=== PATIENT | female | born 1945 | race African-American/Black ===

== ENCOUNTER 2021-06-26 22:21 | Emergency (ER) | payer MEDICARE, MEDICAID, SELFPAY ==
--- NOTE | ~2021-06-26 | XR_ITS ---
XR knee RT 3V DATE: 06/26/2021 23:16 INDICATION: Injury from fall 2 months ago. Pain at right knee. TECHNIQUE: 3 views including crosstable lateral COMPARISON: None FINDINGS: There is prominent diffuse osteopenia. There is suprapatellar knee joint effusion. There is periarticular spurring of the patella and at the medial compartment. No apparent recent fracture is detected. There is no dislocation. There is chondrocalcinosis. IMPRESSION: Prominent diffuse osteopenia Knee joint effusion Osteoarthritis Chondrocalcinosis Reviewed, dictated and finalized at location A.
--- NOTE | ~2021-06-26 | XR_ITS ---
XR ankle RT min 3V DATE: 06/26/2021 23:16 INDICATION: Fall 5 days ago, right ankle injury TECHNIQUE: 3 views COMPARISON: None FINDINGS: There is severe diffuse osteopenia. No recent fracture or dislocation of the ankle or disru ption of the ankle mortise is detected. Plantar and posterior calcaneal enthesopathy. IMPRESSION: Severe osteopenia No recent fracture or dislocation Plantar and posterior calcaneal enthesopathy Reviewed, dictated and finalized at location A.
[2021-06-26 22:28] VITALS: BP 120/56; PULSE 75; RESP 16; TEMP 36.7; O2SAT 97
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
--- NOTE | 2021-06-26 23:53 | PC.NURSE ---
called [facility] to request transport. ETA [id number]
[2021-06-27] MEDS: HYDROcodone/acetaminophen (*CRX) 7.5-325 MG TABLET 1 TAB PO
[2021-06-27] MEDS: KETOROLAC 30 MG/ML VIAL (*BKC) IM (00:10)
[2021-06-27] MEDS: diazePAM (*CRX) 5 MG TABLET 2.5 MG PO (00:10)
[2021-06-27 00:12] VITALS: BP 113/42; PULSE 61; RESP 15; O2SAT 95
--- NOTE | 2021-06-27 00:30 | PC.NURSE ---
tried multiple times to call report to [facility]. it just rings and then disconnects. called at 0029, 0028 and 0025
--- NOTE | 2021-06-27 01:01 | PC.NURSE ---
called [facility] to request transport. ETA [id number]
--- NOTE | 2021-06-27 01:03 | PC.NURSE ---
called [facility] to request transport. Accepted.
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
[2021-06-27 01:27] VITALS: BP 117/73; PULSE 67; RESP 17; O2SAT 96
--- NOTE | 2021-06-27 01:36 | PC.NURSE ---
tried calling report at [phone] and [phone]
--- NOTE | 2021-06-27 02:02 | PC.NURSE ---
called [facility] for ETA update. ETA [id number]
--- NOTE | 2021-06-27 02:02 | PC.NURSE ---
speedy from [facility] called to check on a different patient. report was given to her.
--- NOTE | 2021-06-27 03:06 | PC.NURSE ---
[facility] here.
== END 2021-06-27 03:08 ==
PROVIDERS: Emergency Provider Emergency Medicine; PCP Internal Medicine
DX: S93.401A Sprain of unspecified ligament of right ankle, initial encounter (principal); S96.911A Strain of unspecified muscle and tendon at ankle and foot level, right foot, initial encounter; M25.561 Pain in right knee; I10 Essential (primary) hypertension; I69.354 Hemiplegia and hemiparesis following cerebral infarction affecting left non-dominant side; V00.818A Other accident with wheelchair (powered), initial encounter
CPT/HCPCS: 73562; 73610; 96372; 99284; A9270; J1885

== ENCOUNTER 2021-10-17 16:37 | Emergency (ER) | payer OTHER, SELFPAY ==
--- NOTE | ~2021-10-17 | CT_ITS ---
EXAMINATION: CT brain wo con DATE: 10/17/2021 21:00 INDICATION: Head injury TECHNIQUE: Computed tomography (CT) of the head was performed without intravenous contrast. The dose- length product was 605.33 mGy-cm. Automated exposure control and iterative reconstruction technique w ere employed. COMPARISON: None FINDINGS: No acute intracranial hemorrhage, infarction, mass or mass effect. No ventriculomegaly or m idline shift. Basilar cisterns are patent. There are scattered mild periventricular and subcortical w joseph matter changes, most likely related to small vessel ischemic disease (microangiopathy). There is intracranial atherosclerosis. Paranasal sinuses and mastoids are pneumatized. No depressed skull fra ctures. IMPRESSION: 1. No acute intracranial abnormality. Reviewed, dictated and finalized at location A. T LINER
--- NOTE | ~2021-10-17 | CT_ITS ---
EXAMINATION: CT cervical spine wo con DATE: 10/17/2021 21:00 INDICATION: Neck pain after fall TECHNIQUE: Computed tomography (CT) of the cervical spine was performed without intravenous contrast. The dose-length product was 294 mGy-cm. Automated exposure control and iterative reconstruction tech nique were employed. COMPARISON: None FINDINGS: Status post fusion at C5-6. There is straightening of cervical lordosis. There is disc narr owing at C7-T1. There is moderate multilevel facet degenerative change. There is mild levoscoliosis. Lung apices are within normal limits. No acute fracture, subluxation or dislocation. Craniovertebral junction within normal limits. Odontoid process within normal limits. There is carotid atherosclerosi s. IMPRESSION: 1. Moderate cervical spondylosis with fusion at C5-6. 2: No acute fracture identified. Reviewed, dictated and finalized at location A. TH AND SAFETY ADVISOR
--- NOTE | ~2021-10-17 | XR_ITS ---
XR knee RT 3V 10/17/2021 21:20 Indication: Right knee pain after fall Procedure: 3 views right knee Comparison: No prior studies for comparison. Findings: Mild-moderate tricompartment all osteoarthritis. There is chondrocalcinosis. Small joint ef fusion. No acute fracture or traumatic malalignment. No significant soft tissue abnormality. Impression: 1: No acute fracture. Reviewed, dictated and finalized at location A. GER MATERIALS MANAGEMENT Impression: 1: No acute fracture.
--- NOTE | ~2021-10-17 | XR_ITS ---
XR wrist RT min 3V 10/17/2021 21:20 Indication: Right wrist pain after fall Procedure: 4 views right wrist Comparison: No prior studies for comparison. Findings: Osteopenia. There is osteoarthritis of the triscaphe, radiocarpal and first CMC joints. Sub tle chondrocalcinosis. No acute fracture is identified. No focal soft tissue abnormality. No radiopaq ue foreign bodies. Impression: 1: No acute fracture. Reviewed, dictated and finalized at location A. HER WHITENER Impression: 1: No acute fracture.
[2021-10-17 16:41] VITALS: BP 132/87; PULSE 78; RESP 18; TEMP 36; O2SAT 100
[2021-10-17 18:05] VITALS: BP 157/84; PULSE 70; RESP 16; O2SAT 97
[2021-10-17 20:22] VITALS: BP 173/76; PULSE 71; RESP 16; O2SAT 97
[2021-10-17 21:19] VITALS: BP 170/76; PULSE 65; RESP 18; O2SAT 97
[2021-10-17] MEDS: HYDROcodone/acetaminophen (*CRX) 5-325 MG TABLET 1 TAB PO (21:39)
--- NOTE | 2021-10-17 21:39 | PC.NURSE ---
updated on patient pain and blood pressure. Ordered [place] [facility]
--- NOTE | 2021-10-17 21:41 | ED.GENADULT ---
HPI - General Adult General Chief complaint: Fall Stated complaint: Fall Last Night Time Seen by Provider: 10/17/21 20:17 History of Present Illness HPI narrative: Patient is a 76-year-old female who presents the emergency department with chief complaint of fall. The patient states she rolled out of her bed reports she has pain in her right wrist right knee neck and head. The patient denies loss of consciousness reports that she is not on blood thinners. The patient reports no focal neurological deficit. The patient states that pain is worse with movement and improved with rest Related Data Home Medications Medication Instructions Recorded Confirmed acetaminophen 650 mg PO ONCE 06/26/21 06/26/21 alum-mag hydroxide-simeth 30 ml PO ONCE 06/26/21 06/26/21 ascorbic acid (vitamin C) 500 mg PO DAILY 06/26/21 06/26/21 bisacodyl [Dulcolax (bisacodyl)] 10 mg RECTAL DAILY PRN 06/26/21 06/26/21 carboxymethylcellulose sodium 1 drp EACH EYE QID 06/26/21 06/26/21 clonazepam 1 mg PO BID 06/26/21 06/26/21 diclofenac sodium 2 g TOPICAL QID 06/26/21 06/26/21 docusate sodium 100 mg PO DAILY 06/26/21 06/26/21 duloxetine 40 mg PO DAILY 06/26/21 06/26/21 ferrous sulfate 324 mg PO EVERY OTHER DAY 06/26/21 06/26/21 fluticasone propionate 1 spray INTRANASAL DAILY 06/26/21 06/26/21 gabapentin 400 mg PO BID 06/26/21 06/26/21 magnesium hydroxide [Milk of 30 ml PO DAILY PRN 06/26/21 06/26/21 Magnesia] melatonin 5 mg PO HS 06/26/21 06/26/21 multivitamin [Daily Multivitamin] 1 tablet PO DAILY 06/26/21 06/26/21 oxycodone-acetaminophen [Percocet] 1 tablet PO Q6H 06/26/21 06/26/21 polyethylene glycol 3350 [Miralax] 17 g PO DAILY 06/26/21 06/26/21 sertraline 100 mg PO DAILY 06/26/21 06/26/21 sucralfate 1 g PO AC 06/26/21 06/26/21 trazodone 25 mg PO HS 06/26/21 06/26/21 Allergies Allergy/AdvReac Type Severity Reaction Status Date / Time aspirin Allergy Unknown Verified 10/17/21 21:22 Influenza Virus Vaccines Allergy Unknown Verified 10/17/21 21:22 Penicillins Allergy Unknown Verified 10/17/21 21:22 pneumococcal vaccine Allergy Unknown Verified 10/17/21 21:22 [From Pneumovax-23] Review of Systems Review of Systems: A 10 system review of systems was completed on the patient and is negative except for what is stated in the HPI. Nursing and ancillary documentation was reviewed. Exam Narrative: GENERAL: Well-appearing, well-nourished, and in no acute distress. HEAD: Normocephalic, atraumatic. EYES: PERRLA and EOMI. ENT: Nares clear, no rhinorrhea or epistaxis. Mucous membranes moist. NECK: Tenderness to palpation in the midline of the cervical spine. CHEST: Clear to auscultation. No respiratory distress. HEART: Regular rate and rhythm. No murmur heard. Normal peripheral pulses. ABDOMEN: Soft, nontender, nondistended, normal active bowel sounds. EXTREMITIES: Normal range of motion. No edema. There is tenderness to palpation in the right knee and right wrist. SKIN: Warm, dry, no rash. NEURO: No focal deficits. Alert and oriented x3. PSYCH: Normal mood and affect. Course Course Emergency Course: CT head shows no acute abnormalities CT cervical spine shows no evidence of fracture Knee x-ray shows no evidence of fracture Wrist x-ray shows no evidence of fracture Vital Signs Vital signs: Vital Signs Temperature 36.0 C L 10/17/21 16:41 Pulse Rate 78 10/17/21 16:41 Respiratory Rate 18 10/17/21 16:41 Blood Pressure 132/87 10/17/21 16:41 Pulse Oximetry 100 10/17/21 16:41 Temperature 36.0 C L 10/17/21 16:41 Pulse Rate 65 10/17/21 21:19 Respiratory Rate 18 10/17/21 21:19 Blood Pressure 170/76 H 10/17/21 21:19 Pulse Oximetry 97 10/17/21 21:19 Medical Decision Making Vital Signs Vital Signs: Vital Signs Temperature 36.0 C L 10/17/21 16:41 Pulse Rate 78 10/17/21 16:41 Respiratory Rate 18 10/17/21 16:41 Blood Pressure 132/87 10/17/21 16:41 Pulse Oximetry 100 10/17/21 16:41 [place]
--- NOTE | 2021-10-17 21:43 | PC.NURSE ---
Initial [place] dropped on floor. Wasted with charge machine operator, Ember, and additional dose pulled and administered to patient.
[2021-10-17 22:36] VITALS: BP 181/93; PULSE 71; RESP 16; TEMP 36.9; O2SAT 98
--- NOTE | 2021-10-17 22:41 | PC.NURSE ---
Called daughter, Lesia, gave update. 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 States patient is wheelchair bound.
--- NOTE | 2021-10-17 22:43 | PC.NURSE ---
Spoke with Evelina nurse at [facility]. Gave update that patient is cleared for discharge, will send copy of scans with patient. States [facility] does not have transportation at this time but confirmed patient is wheelchair bound.
--- NOTE | 2021-10-18 00:56 | PC.NURSE ---
@9900 called [facility] to request transport. ETA 0030 @4970 called [facility] for ETA update. ETA [phone]
--- NOTE | 2021-10-18 01:14 | PC.NURSE ---
called [facility] to request transport. No BLS available tonight. called [facility] to request transport. [facility] accepted trip. EMS enroute.
--- NOTE | 2021-10-18 01:25 | PC.NURSE ---
cancelled [facility]
--- NOTE | 2021-10-18 01:43 | PC.NURSE ---
[facility] here.
== END 2021-10-18 02:01 ==
PROVIDERS: Emergency Provider Emergency Medicine; PCP Internal Medicine
DX: S09.90XA Unspecified injury of head, initial encounter (principal); S16.1XXA Strain of muscle, fascia and tendon at neck level, initial encounter; S60.211A Contusion of right wrist, initial encounter; S83.8X1A Sprain of other specified parts of right knee, initial encounter; W06.XXXA Fall from bed, initial encounter
CPT/HCPCS: 70450; 72125; 73110; 73562; 99284; A9270

== ENCOUNTER 2022-01-28 18:24 | Observation (INO) | payer OTHER, SELFPAY ==
--- NOTE | ~2022-01-28 | XR_ITS ---
EXAMINATION: XR abdomen/kub 1V EXAM DATE: 01/29/2022 10:23 INDICATION: Large stool burden. TECHNIQUE: Frontal projection(s) of the abdomen for interpretation. There is no prior study for amber brooks. 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 Contrast within the bladder. There are bilateral hip replacements. There are left upper quadrant surgical clips. There are bilateral hip replacements with some asymmetric liner wear. IMPRESSION: Moderate amount of colonic stool, probable interval decrease compared to yesterday. Reviewed, dictated and finalized at location B. IMPRESSION: Moderate amount of colonic stool, probable interval decrease aline red to yesterday.
--- NOTE | ~2022-01-28 | XR_ITS ---
EXAMINATION: XR chest 1V portable DATE: 01/28/2022 19:29 INDICATION: Abnormal breathing. Headache. TECHNIQUE: A single frontal view of the chest was obtained. COMPARISON: None. FINDINGS: There is marked elevation of right hemidiaphragm. There is mild atelectasis at right lung b ase. No pleural effusion or pneumothorax. The heart size is normal. There are changes of anterior fus ion procedure in cervical spine. There is a staple line in left upper quadrant of the abdomen. IMPRESSION: 1. Marked elevation of right hemidiaphragm with mild atelectasis at right lung base. Reviewed, dictated and finalized at location A.
--- NOTE | ~2022-01-28 | CT_ITS ---
EXAMINATION: CT abdomen pelvis w con DATE: 01/28/2022 23:25 INDICATION: Low abdominal pain. TECHNIQUE: Computed tomography (CT) of the abdomen and pelvis was performed with 100 mL Omnipaque 350 intravenous contrast. Automated exposure control and iterative reconstruction technique were employe d. The dose-length product was 978.16 mGy-cm. COMPARISON: None. FINDINGS: The visualized portions of the lung bases demonstrate marked elevation of right hemidiaphra gm and mild bilateral atelectasis. No pleural effusion. The heart size is normal. No pericardial effu callum. The main pulmonary artery is enlarged, consistent with pulmonary arterial hypertension. Calcifi ed subcarinal lymph nodes are consistent with old granulomatous disease. There is mild intrahepatic b iliary duct dilatation. The common duct is dilated to 11 mm. There are changes of cholecystectomy. Th e spleen, pancreas, and adrenal glands are normal. There is cortical thinning of the kidneys. There a re cysts in the kidneys measuring up to 3.8 cm on the right. There is a large volume of stool in the distal colon with distention of the rectosigmoid. There are surgical changes of the stomach. The appe ndix is not visualized. There are no pathologically enlarged lymph nodes. There is no free intraperit hall fluid. There is gas in the bladder lumen, likely secondary to recent instrumentation. There are bilateral hip arthroplasties. There is severe lumbar spondylosis and moderate thoracic spondylosis. IMPRESSION: 1. Large volume of stool in the distal colon with distention of the rectosigmoid. 2. Mild intrahepatic and extrahepatic biliary duct dilatation status post cholecystectomy. Reviewed, dictated and finalized at location A. IMPRESSION: 1. Large volume of stool in the distal colon with distention of the rectosigmoi d. 2. Mild intrahepatic and extrahepatic biliary duct dilatation status post henri cystectomy.
[2022-01-28 18:24] VITALS: BP 146/86; PULSE 88; RESP 18; TEMP 36.8; O2SAT 95
[2022-01-28 18:47] LABS: Basophils Percent Auto 0.5 % (0.2-1.2); Eosinophils Absolute Auto 0.3 K/mm3 (0-0.3); Eosinophils Percent Auto 4.4 % (0-4.4); Hematocrit 42.5 % (37.0-47.0); Hemoglobin 13.9 g/dL (12.0-15.0); Immature Granulocyte Absolute 0.01 K/mm3 (0.00-0.031); Immature Granulocyte Percent A 0.2 % (0-0.5); Lymphocytes Absolute Auto 3.62 K/mm3 (0.9-3.2); Lymphocytes Percent Auto 57.3 % (18.3-44.2); Mean Corpuscular HGB Conc 32.7 g/dl (32-36); Mean Corpuscular Hemoglobin 29.9 pg (26-34); Mean Corpuscular Volume 91.4 fl (80-100); Mean Platelet Volume 10.1 fl (7.4-10.4); Monocytes Absolute Auto 0.5 K/mm3 (0.1-0.6); Monocytes Percent Auto 7.8 % (2.6-8.5); Neutrophils Absolute Auto 1.9 K/mm3 (1.3-6.7); Neutrophils Percent Auto 29.8 % (45.5-73.1); Platelet Count Result 188 k/mm3 (150-375); Red Blood Count 4.65 M/mm3 (4.2-5.4); Red Cell Distribution Width 13.7 % (11.5-14.5); White Blood Count 6.3 K/mm3 (4.5-10.0)
--- NOTE | 2022-01-28 19:08 | ECG_ITS ---
Measurements Intervals [place] Rate: 80 P: ND: 220 QRS: -12 QRSD: 140 T: 110 QT: 443 QTc: 511 Interpretive Statements SINUS RHYTHM WITH FIRST-DEGREE AV BLOCK AND PREMATURE ATRIAL CONTRACTIONS. LEFT BUNDLE BRANCH BLOCK [120+ ms QRS DURATION, 80+ ms Q/S IN V1/V2, 85+ ms R IN I/aVL/V5/V6] ABNORMAL ECG NO PREVIOUS ECG AVAILABLE FOR COMPARISON Electronically Signed On 01-29-2022 17:05:10 CDT by Amos Helm M.D.
--- NOTE | 2022-01-28 19:08 | ED.GENADULT ---
HPI - General Adult General Chief complaint: Unspecified <Ann Caal PA-C - Last Filed: 01/29/22 00:45> Stated complaint: abn breathing, vag bleed, tooth ache <Ann Caal PA-C - Last Filed: 01/29/22 00:45> Time Seen by Provider: 01/28/22 18:56 <Ann Caal PA-C - Last Filed: 01/29/22 00:45> Source: patient <TURNER Etienne Last Filed: 01/29/22 00:45> Mode of arrival: EMS <TURNER Etienne Last Filed: 01/29/22 00:45> Limitations: no limitations <Ann Caal PA-C - Last Filed: 01/29/22 00:45> History of Present Illness HPI narrative: This is a 76 year old female that presents to the ER for abdominal pain. Present today. Reports a crampy lower abdominal pain. Reports she thought she was having some vaginal bleeding as well. Patient is bed bound and incontinent. She did not see any bleeding, just thought she felt it. Also reports she felt she was having trouble breathing today. Denies fever, chest pain, vomiting, or dysuria. <Ann Caal PA-C - Last Filed: 01/29/22 00:45> Related Data Home medications: Home Medications Medication Instructions Recorded Confirmed acetaminophen 650 mg PO ONCE 06/26/21 06/26/21 alum-mag hydroxide-simeth 30 ml PO ONCE 06/26/21 06/26/21 ascorbic acid (vitamin C) 500 mg PO DAILY 06/26/21 06/26/21 bisacodyl [Dulcolax (bisacodyl)] 10 mg RECTAL DAILY PRN 06/26/21 06/26/21 carboxymethylcellulose sodium 1 drp EACH EYE QID 06/26/21 06/26/21 clonazepam 1 mg PO BID 06/26/21 06/26/21 diclofenac sodium 2 g TOPICAL QID 06/26/21 06/26/21 docusate sodium 100 mg PO DAILY 06/26/21 06/26/21 duloxetine 40 mg PO DAILY 06/26/21 06/26/21 ferrous sulfate 324 mg PO EVERY OTHER DAY 06/26/21 06/26/21 fluticasone propionate 1 spray INTRANASAL DAILY 06/26/21 06/26/21 gabapentin 400 mg PO BID 06/26/21 06/26/21 magnesium hydroxide [Milk of 30 ml PO DAILY PRN 06/26/21 06/26/21 Magnesia] melatonin 5 mg PO HS 06/26/21 06/26/21 multivitamin [Daily Multivitamin] 1 tablet PO DAILY 06/26/21 06/26/21 oxycodone-acetaminophen [Percocet] 1 tablet PO Q6H 06/26/21 06/26/21 polyethylene glycol 3350 [Miralax] 17 g PO DAILY 06/26/21 06/26/21 sertraline 100 mg PO DAILY 06/26/21 06/26/21 sucralfate 1 g PO AC 06/26/21 06/26/21 trazodone 25 mg PO HS 06/26/21 06/26/21 <Ann Caal PA-C - Last Filed: 01/29/22 00:45> Allergies/adverse reactions: Allergies Allergy/AdvReac Type Severity Reaction Status Date / Time aspirin Allergy Unknown Verified 01/28/22 18:49 Influenza Virus Vaccines Allergy Unknown Verified 01/28/22 18:49 Penicillins Allergy Unknown Verified 01/28/22 18:49 pneumococcal vaccine Allergy Unknown Verified 01/28/22 18:49 [From Pneumovax-23] <Ann Caal PA-C - Last Filed: 01/29/22 00:45> Review of Systems Review of Systems: CONSTITUTIONAL: Denies fever CARDIOVASCULAR: Denies chest pain RESPIRATORY: Reports dyspnea. Denies cough GASTROINTESTINAL: Reports abdominal pain. Denies nausea, vomiting, or diarrhea. GENITOURINARY: Denies dysuria or hematuria. <Ann Caal PA-C - Last Filed: 01/29/22 00:45> All systems reviewed & are unremarkable except as noted in HPI and below <Ann Caal PA-C - Last Filed: 01/29/22 00:45> PMFSH Past Medical History Medical History: Medical History (Updated 01/29/22 @ 00:42 by Ann Caal PA-C) GERD (gastroesophageal reflux disease) History of anxiety History of depression <Ann Caal PA-C - Last Filed: 01/29/22 00:45> Social History Social History: Social History (Updated 01/28/22 @ 19:17 by Ann Caal PA-C) Smoking status: Never smoker <Ann Caal PA-C - Last Filed: 01/29/22 00:45> Exam Narrative: GENERAL: Elderly, well-nourished, and in no acute distress. HEAD: Normocephalic, atraumatic. EYES: EOMI. ENT: Poor dentition. Several decaying teeth. No edema or fluctuance to suggest an abscess. Mucous membranes moist. Oropharynx
[2022-01-28 19:43] VITALS: BP 173/74; PULSE 75; RESP 16; O2SAT 96
[2022-01-28 19:46] LABS: INR 1.1; Prothrombin Time 13.5 Seconds (11.1-14.7)
[2022-01-28 19:47] LABS: Partial Thromboplastin Time 28.1 SECONDS (22.3-36.8)
[2022-01-28 19:48] LABS: Alanine Aminotransferase 10 U/L (4-35); Albumin Level 3.6 g/dL (3.5-5.1); Alkaline Phosphatase 129 U/L (38-126); Anion Gap 2 mmol/L (8-16); Aspartate Amino Transferase 20 U/L (14-36); Bilirubin,Total 0.4 mg/dL (0.2-1.3); Blood Urea Nitrogen 17 mg/dL (7-17); Calcium 8.4 mg/dL (8.4-10.2); Carbon Dioxide 29 mmol/L (22-30); Chloride 105 mmol/L (98-107); Estimated CRCL calculation 89 ml/min; Estimated Glomerular Filt Rate > 60; Glucose 107 mg/dL (65-110); Lipase 103 U/L (23-300); Potassium 3.6 mmol/L (3.4-5.0); Sodium 136 mmol/L (137-145)
[2022-01-28 21:24] VITALS: BP 161/77; PULSE 78; RESP 18; O2SAT 97
[2022-01-28] MEDS: SODIUM CHLORIDE 0.9% IV 500 ML 999 ML IV CONT (21:24)
[2022-01-28 21:46] VITALS: BP 174/79; PULSE 73; RESP 14; O2SAT 97
[2022-01-28 22:46] VITALS: BP 190/82; PULSE 74; RESP 16; O2SAT 96
[2022-01-28 23:01] VITALS: BP 173/87; PULSE 71; RESP 12; O2SAT 97
[2022-01-28 23:10] LABS: Add Urine Microscopic? YES; Appearance Urine Cloudy (Clear); Bacteria Urine Trace /hpf; Bilirubin Urine Negative (Negative); Blood Urine Negative (Negative); Color Urine Yellow (Yellow); Glucose Urine UA Negative (Negative); Ketones Urine Negative (Negative); Leukocyte Esterase Ur 3+ LEU/UL (Negative); Mucus Urine Rare /lpf; Nitrate Urine Negative (Negative); Protein Urine 1+ mg/dL (Negative); RBC Urine 21-50 /hpf (0-2); Specific Grav Ur 1.017 (1.001-1.035); Squamous Epithelial Cell Urine Occasional /hpf (Few); WBC Clumps Urine Present /HPF; WBC Urine >75 /hpf
[2022-01-29] VITALS (14 sets, daily range): BP systolic 113–175; BP diastolic 76–93; PULSE 71–90; RESP 13–20; TEMP 35.7–36.8; O2SAT 97–99; BMI 23.9
--- NOTE | 2022-01-29 00:21 | PM.IMHP ---
H&P: HPI History of Present Illness Date/Time: 01/29/22 00:21 Chief Complaint: Abdominal pain. Narrative: This is a 76-year-old female with past medical history significant for spinal stenosis, chronic pain, chronic opiate use, patient is [facility] resident. Was brought to the emergency room for evaluation of abdominal pain. Patient unable to give much history. Preliminary workup was significant for CT of abdomen and pelvis with large stool burden. Patient denies any fevers, rigors ,chills, nausea ,vomiting no cough, no shortness of breath, no sputum production, she is bed-bound. Patient has been admitted for further, evaluation management and treatment. Review of Systems Review of Systems: Patient is brought to emergency room due to abdominal pain. Constitutional: Constitutional: Denies chills, Denies fatigue, Denies fever(s), Denies night sweats and Denies weakness Eyes: Eyes: Denies change in vision ENT: Denies dysphagia, Denies vertigo, Denies dizziness, Denies nasal congestion, Denies nasal discharge, Denies nasal obstruction and Denies odynophagia Cardiovascular: Cardiovascular: Denies pedal edema, Denies claudication, Denies leg ulcers, Denies leg edema, Denies radiating jaw, neck or arm pain, Denies palpitations, Denies dyspnea on exertion and Denies orthopnea Gastrointestinal: Gastrointestinal: Reports abdominal pain, Denies dyspepsia, Denies heartburn and Denies nausea Genitourinary: Genitourinary: Denies dysuria Musculoskeletal: Musculoskeletal: Denies arthralgias and Denies joint swelling Integumentary/Breasts: Skin/Breast: Denies rash Neurologic: Denies vertigo, Denies dizziness, Denies focal weakness and Denies Sensory deficit (Neuro) Comments: Bed-bound Psychiatric: Psychiatric: Reports no additional psychiatric complaints and Reports as per HPI Endocrine: Endocrine: Denies cold intolerance, Denies heat intolerance, Denies polyphagia, Denies polydipsia and Denies palpitations Hematologic/Lymphatic: Hematologic/Lymphatic: Reports no additional hematologic/lymphatic complaints and Reports as per HPI Allergic/Immunologic: Allergic/Immunologic: Reports no additional allergic/immunologic complaints and Reports as per HPI [facility] Past Medical History Medical History (Updated 01/29/22 @ 04:37 by Estefani Boss MD) GERD (gastroesophageal reflux disease) History of anxiety History of depression Social History Social History (Updated 01/28/22 @ 19:17 by Ann Caal PA-C) Smoking status: Never smoker Meds Home Medications and Allergies Home Medications Medication Instructions Recorded Confirmed Type acetaminophen 650 mg PO TID PRN 06/26/21 01/29/22 History alum-mag hydroxide-simeth 30 ml PO ONCE PRN 06/26/21 01/29/22 History ascorbic acid (vitamin C) 500 mg PO DAILY 06/26/21 01/29/22 History bisacodyl [Dulcolax (bisacodyl)] 10 mg RECTAL DAILY PRN 06/26/21 01/29/22 History carboxymethylcellulose sodium 1 drp EACH EYE QID 06/26/21 01/29/22 History clonazepam 1 mg PO BID 06/26/21 01/29/22 History diclofenac sodium 2 g TOPICAL QID 06/26/21 01/29/22 History docusate sodium 100 mg PO DAILY 06/26/21 01/29/22 History duloxetine 40 mg PO DAILY 06/26/21 01/29/22 History ferrous sulfate 325 mg PO EVERY OTHER DAY 06/26/21 01/29/22 History fluticasone propionate 1 spray INTRANASAL DAILY 06/26/21 01/29/22 History gabapentin 400 mg PO BID 06/26/21 01/29/22 History magnesium hydroxide [Milk of 30 ml PO DAILY PRN 06/26/21 01/29/22 History Magnesia] melatonin 5 mg PO HS 06/26/21 01/29/22 History multivitamin [Daily Multivitamin] 1 tablet PO DAILY 06/26/21 01/29/22 History oxycodone-acetaminophen [Percocet] 1 tablet PO Q6H 06/26/21 01/29/22 History polyethylene glycol 3350 [Miralax] 17 g PO DAILY 06/26/21 01/29/22 History sertraline 100 mg PO DAILY 06/26/21 01/29/22 History sucralfate 1 g PO AC 06/26/21 01/29/22 History trazodone 25 mg PO HS 06/26/21 01/29/22 History Antifungal (miconazole) 1 applic TOPICAL B
[2022-01-29 01:46] LABS: SARS-CoV-2 RNA PCR Negative
--- NOTE | 2022-01-29 02:48 | PC.NURSE ---
Updated RN at [facility] at this time per phone.
--- NOTE | 2022-01-29 04:30 | ADMGEN ---
This patient, Cora Escalante, was admitted to Medical Room 249-01. Patient/family oriented to hospital policies and general routines including ID bracelet, bed and alarms, visiting hours, pain management, procedures, bathroom and other care routines, personal items, smoking policy, room service/diet, and visiting hours. Information on how to activate the Rapid Response Team has been discussed. Patient/Family are encouraged to report perceived risks to care and to ask questions if they do not understand what they are told or what they should do.
[2022-01-29] MEDS: SUCRALFATE 1 GM TABLET PO ×3 (06:23→16:44)
[2022-01-29] MEDS: ACETAMINOPHEN 325 MG TABLET 650 MG PO ×2 (06:25→16:44)
[2022-01-29] MEDS: ARTIFICIAL TEARS OPHTH SOLN 15 ML BOTTLE 1 DROP EACH EYE ×4 (08:43→20:46)
[2022-01-29] MEDS: DOCUSATE SODIUM 100 MG CAPSULE PO (08:43)
[2022-01-29] MEDS: polyethylene glycoL 3350 17 GM POWD.PACK PO (08:43)
[2022-01-29] MEDS: FLUTICASONE PROPIONATE 0.05% NA SPR 16 GM BTL (*BKC) 1 SPRAY NASAL (08:43)
[2022-01-29] MEDS: TOLNAFTATE 1% POWDER 45 GM BTL 1 APPLIC TOPICAL ×2 (08:43→20:46)
[2022-01-29] MEDS: MULTIVITAMINS THERAPEUTIC TAB (*BKC) 1 TABLET PO (08:43)
[2022-01-29] MEDS: GABAPENTIN 400 MG CAPSULE PO ×2 (08:43→20:46)
[2022-01-29] MEDS: SERTRALINE HCL 50 MG TABLET 100 MG PO (08:43)
[2022-01-29] MEDS: ASCORBIC ACID 500 MG TABLET PO (08:43)
[2022-01-29] MEDS: FERROUS SULFATE 324 MG TABLET PO (08:44)
[2022-01-29] MEDS: DULoxetine HCL 20 MG CAPSULE.DR 40 MG PO (08:44)
[2022-01-29] MEDS: clonazePAM (*CRX) 0.5 MG TABLET 1 MG PO ×2 (08:44→16:44)
[2022-01-29] MEDS: CHLORHEXIDINE GLUCONATE 0.12% ORAL RINSE 473 ML BTL (*BKC) 15 ML SWISH/SPIT ×4 (08:45→20:47)
[2022-01-29] MEDS: DICLOFENAC SODIUM 1% 100 GM GEL (*BKC) 1 APPLIC TOPICAL ×4 (08:45→20:46)
--- NOTE | 2022-01-29 14:45 | PM.IMPN ---
Progress Note: A&P Assessment and Plan (1) Acute UTI: Code(s): N39.0 - Urinary tract infection, site not specified Status: Acute Assessment and Plan: UA was abnormal on presentation with 3+ leuk esterase and >75 WBC Continue IV levofloxacin Urine cultures pending Monitor final culture results and tailor antibiotics accordingly (2) Constipation: Qualifiers: Constipation type: unspecified constipation type Qualified Code(s): K59.00 - Constipation, unspecified Code(s): K59.00 - Constipation, unspecified Status: Acute Assessment and Plan: CT on presentation showed large volume of stool in distal colon with distention of the rectosigmoid She received soapsuds enema in the ED and subsequently had 3 bowel movements Repeat KUB today shows moderate amount of colonic stool with interval decreased compared to 1 day prior Continue MiraLax b.i.d. and Colace b.i.d. Proceed with Dulcolax suppository today Encourage ambulation and limit narcotics (3) GERD (gastroesophageal reflux disease): Code(s): K21.9 - Gastro-esophageal reflux disease without esophagitis Status: Inactive Assessment and Plan: No acute issues Continue sucralfate Subjective Date/time seen: 01/29/22 14:45 Interval history: Date of service: 01/29/2022 Cora Escalante is a 76-year-old a history anxiety, depression, anger follow-up for UTI and constipation. She is feeling a lot better today. She had 3 bowel movements yesterday following enema and notes significant improvement. She denies abdominal pain, cramping, or bloating. Denies nausea or vomiting. She has been tolerating clear liquids and would like to advance her diet. She does endorse dysuria which she states has been ongoing for quite a while. she notes no improvement as of yet. She denies hematuria, urgency, or frequency. She states that she is bed-bound and wears depends. she denies dizziness, lightheadedness, weakness, fever, or chills, shortness breath, cough, chest pain. She is in good spirits. Review of Systems Review of Systems: All systems reviewed & are unremarkable except as noted in HPI and below Exam Narrative: General: Thin, chronically ill-appearing 76 year-old female, sitting up in bed, comfortable, NARD Neuro: awake, alert and oriented, answers all questions appropriately, speech clear, no focal neuro deficits noted HEENMT: normocephalic, atraumatic, EOMI, sclerae anicteric, poor dentition Respiratory: clear to auscultation bilaterally, nonlabored breathing Cardio: regular rate, regular rhythm with S1-S2 Abdomen: nondistended, normoactive bowel sounds, soft, nontender to palpation : no CVA tenderness Extremities: trace edema, legs are propped up on a pillow, noerythema or tenderness to palpation, DP pulses 2+ bilaterally Skin: no rashes or lesions, warm and dry Psych: appropriate mood and affect, judgment and insight intact Objective Data Vital Signs Vital Signs: Vital Signs - 24 hr 01/28/22 18:24 01/28/22 19:43 01/28/22 21:24 Temperature 98.3 F Pulse Rate 88 75 78 Respiratory Rate 18 16 18 Blood Pressure 146/86 H 173/74 H 161/77 H Pulse Oximetry 95 96 97 01/28/22 21:46 01/28/22 22:46 01/28/22 23:01 Temperature Pulse Rate 73 74 71 Respiratory Rate 14 16 12 Blood Pressure 174/79 H 190/82 H 173/87 H Pulse Oximetry 97 96 97 01/29/22 00:06 01/29/22 01:01 01/29/22 01:46 Temperature Pulse Rate 73 71 73 Respiratory Rate 13 16 16 Blood Pressure 175/79 H 172/80 H 162/78 H Pulse Oximetry 97 97 97 01/29/22 02:15 01/29/22 02:45 01/29/22 04:00 Temperature Pulse Rate 75 85 76 Respiratory Rate 18 19 Blood Pressure 168/88 H 167/93 H Pulse Oximetry 97 98 01/29/22 04:07 01/29/22 06:00 01/29/22 08:00 Temperature 97.1 F L Pulse Rate 85 77 87 Respiratory Rate 19 20 Blood Pressure 141/76 H Pulse Oximetry 98 99 01/29/22 12:00 Temperature Pulse Rate
[2022-01-29] MEDS: BISACODYL 10 MG SUPPOSITORY RECTAL (15:11)
[2022-01-29] MEDS: traZODone HCL 25 MG TABLET PO (20:46)
[2022-01-29] MEDS: MELATONIN 5 MG TABLET PO (20:46)
[2022-01-30] VITALS (9 sets, daily range): BP systolic 128–147; BP diastolic 67–84; PULSE 70–88; RESP 14–18; TEMP 35.7–36.8; O2SAT 97–99
[2022-01-30 05:25] LABS: Hematocrit 44.3 % (37.0-47.0); Hemoglobin 14.8 g/dL (12.0-15.0); Mean Corpuscular HGB Conc 33.4 g/dl (32-36); Mean Corpuscular Hemoglobin 29.8 pg (26-34); Mean Corpuscular Volume 89.3 fl (80-100); Platelet Count Result 173 k/mm3 (150-375); Red Blood Count 4.96 M/mm3 (4.2-5.4); Red Cell Distribution Width 13.4 % (11.5-14.5); White Blood Count 5.9 K/mm3 (4.5-10.0)
[2022-01-30] MEDS: SUCRALFATE 1 GM TABLET PO ×3 (05:30→16:17)
[2022-01-30 05:33] LABS: Anion Gap 9 mmol/L (8-16); Blood Urea Nitrogen 11 mg/dL (7-17); Carbon Dioxide 27 mmol/L (22-30); Chloride 103 mmol/L (98-107); Estimated CRCL calculation 89 ml/min; Estimated Glomerular Filt Rate > 60; Glucose 107 mg/dL (65-110); Potassium 3.1 mmol/L (3.4-5.0); Sodium 139 mmol/L (137-145)
[2022-01-30] MEDS: ASCORBIC ACID 500 MG TABLET PO (08:43)
[2022-01-30] MEDS: DULoxetine HCL 20 MG CAPSULE.DR 40 MG PO (08:43)
[2022-01-30] MEDS: polyethylene glycoL 3350 17 GM POWD.PACK PO (08:43)
[2022-01-30] MEDS: MULTIVITAMINS THERAPEUTIC TAB (*BKC) 1 TABLET PO (08:43)
[2022-01-30] MEDS: SERTRALINE HCL 50 MG TABLET 100 MG PO (08:43)
[2022-01-30] MEDS: DOCUSATE SODIUM 100 MG CAPSULE PO (08:43)
[2022-01-30] MEDS: GABAPENTIN 400 MG CAPSULE PO ×2 (08:43→21:09)
[2022-01-30] MEDS: ARTIFICIAL TEARS OPHTH SOLN 15 ML BOTTLE 1 DROP EACH EYE ×4 (08:44→21:09)
[2022-01-30] MEDS: TOLNAFTATE 1% POWDER 45 GM BTL 1 APPLIC TOPICAL ×2 (08:44→21:09)
[2022-01-30] MEDS: FLUTICASONE PROPIONATE 0.05% NA SPR 16 GM BTL (*BKC) 1 SPRAY NASAL (08:44)
[2022-01-30] MEDS: clonazePAM (*CRX) 0.5 MG TABLET 1 MG PO ×2 (08:53→16:17)
[2022-01-30] MEDS: ACETAMINOPHEN 325 MG TABLET 650 MG PO (08:53)
[2022-01-30] MEDS: POTASSIUM CHLORIDE 20 MEQ TABLET 40 MEQ PO (09:35)
--- NOTE | 2022-01-30 10:13 | PM.IMPN ---
Progress Note: A&P Assessment and Plan (1) Acute UTI: Code(s): N39.0 - Urinary tract infection, site not specified Status: Acute Assessment and Plan: UA was abnormal on presentation with 3+ leuk esterase and >75 WBC Continue IV levofloxacin Urine cultures pending Monitor final culture results and tailor antibiotics accordingly (2) Constipation: Qualifiers: Constipation type: unspecified constipation type Qualified Code(s): K59.00 - Constipation, unspecified Code(s): K59.00 - Constipation, unspecified Status: Acute Assessment and Plan: CT on presentation showed large volume of stool in distal colon with distention of the rectosigmoid She received soapsuds enema in the ED and subsequently had 3 bowel movements Repeat KUB today shows moderate amount of colonic stool with interval decreased compared to 1 day prior Continue MiraLax b.i.d. and Colace b.i.d. Proceed with Dulcolax suppository today Encourage ambulation and limit narcotics (3) GERD (gastroesophageal reflux disease): Code(s): K21.9 - Gastro-esophageal reflux disease without esophagitis Status: Inactive Assessment and Plan: No acute issues Continue sucralfate (4) Hypokalemia: Code(s): E87.6 - Hypokalemia Status: Acute Assessment and Plan: - 3.1 today. - Give 40 mEq po - Recheck in AM. Time Spent With Patient Time with patient: 15 - 25 minutes Subjective Date/time seen: 01/30/22 0840 This pt. was examined at the bedside in interval assessment She is currently being treated for a UTI on Levaquin and we are still awaiting culture results. We will continue IV abx in the interim. In the meantime, the pt. has a low Potassium level today of 3.1. She will receive 40 mEq po. No new complaints today and specifically no CP, Dyspnea, N/V/D. Review of Systems Review of Systems: All systems reviewed & are unremarkable except as noted in HPI and below Exam Narrative: General: Thin, chronically ill-appearing 76 year-old female, sitting up in bed, comfortable, NARD Neuro: awake, alert and oriented, answers all questions appropriately, speech clear, no focal neuro deficits noted HEENMT: normocephalic, atraumatic, EOMI, sclerae anicteric, poor dentition Respiratory: clear to auscultation bilaterally, nonlabored breathing Cardio: regular rate, regular rhythm with S1-S2 Abdomen: nondistended, normoactive bowel sounds, soft, nontender to palpation : no CVA tenderness Extremities: trace edema, legs are propped up on a pillow, noerythema or tenderness to palpation, DP pulses 2+ bilaterally Skin: no rashes or lesions, warm and dry Psych: appropriate mood and affect, judgment and insight intact Objective Data Vital Signs Vital Signs: Vital Signs - 24 hr 01/29/22 12:00 01/29/22 14:45 01/29/22 16:00 Temperature 98.2 F Pulse Rate 83 73 90 Respiratory Rate 18 Blood Pressure 152/89 H Pulse Oximetry 98 01/29/22 19:45 01/29/22 20:00 01/30/22 00:00 Temperature 96.3 F L Pulse Rate 83 79 84 Respiratory Rate 18 Blood Pressure 113/90 Pulse Oximetry 99 01/30/22 04:00 01/30/22 04:25 01/30/22 08:00 Temperature 96.2 F L Pulse Rate 85 88 85 Respiratory Rate 18 Blood Pressure 128/84 Pulse Oximetry 98 Intake/Output Intake/Output: Intake & Output 01/27/22 01/28/22 01/29/22 01/30/22 23:59 23:59 23:59 23:59 Intake Total 600 1564 140 Balance 600 1564 140 Meds/Results Medications: Active Medications Generic Name Dose Route Start Last Admin Trade Name Freq PRN Reason Stop Dose Admin Acetaminophen 650 mg 01/29/22 04:16 01/30/22 08:53 Acetaminophen 325 Mg Tablet PO 650 mg TID PRN Administration Pain Rated 1-3 Al Hydrox/Mg Hydrox/Simethicone 30 ml 01/29/22 04:16 Mag Hydrox/Al Hydrox/Simeth 30 Ml Udc PO DAILY PRN Dyspepsia Artificial Tears 1 drop 01/29/22 09:00 01/30/22 08:44 Artific
[2022-01-30] MEDS: CHLORHEXIDINE GLUCONATE 0.12% ORAL RINSE 473 ML BTL (*BKC) 15 ML SWISH/SPIT ×4 (13:24→21:13)
[2022-01-30] MEDS: DICLOFENAC SODIUM 1% 100 GM GEL (*BKC) 1 APPLIC TOPICAL ×4 (13:25→21:13)
[2022-01-30] MEDS: oxyCODONE/ACETAMINOPHEN (*CRX) 5-325 MG TABLET 1 TABLET PO (15:11)
[2022-01-30] MEDS: MELATONIN 5 MG TABLET PO (21:09)
[2022-01-30] MEDS: traZODone HCL 25 MG TABLET PO (21:10)
[2022-01-31] VITALS: PULSE 73
[2022-01-31] MEDS: ACETAMINOPHEN 325 MG TABLET 650 MG PO (02:19)
[2022-01-31 04:00] VITALS: PULSE 80
[2022-01-31 05:04] LABS: Basophils Percent Auto 0.6 % (0.2-1.2); Eosinophils Absolute Auto 0.3 K/mm3 (0-0.3); Eosinophils Percent Auto 5.6 % (0-4.4); Hematocrit 44.2 % (37.0-47.0); Hemoglobin 14.1 g/dL (12.0-15.0); Immature Granulocyte Absolute 0.02 K/mm3 (0.00-0.031); Immature Granulocyte Percent A 0.4 % (0-0.5); Lymphocytes Absolute Auto 3.32 K/mm3 (0.9-3.2); Lymphocytes Percent Auto 62.1 % (18.3-44.2); Mean Corpuscular HGB Conc 31.9 g/dl (32-36); Mean Corpuscular Hemoglobin 29.7 pg (26-34); Mean Corpuscular Volume 93.1 fl (80-100); Mean Platelet Volume 9.7 fl (7.4-10.4); Monocytes Absolute Auto 0.4 K/mm3 (0.1-0.6); Monocytes Percent Auto 7.3 % (2.6-8.5); Neutrophils Absolute Auto 1.3 K/mm3 (1.3-6.7); Platelet Count Result 164 k/mm3 (150-375); Red Blood Count 4.75 M/mm3 (4.2-5.4); Red Cell Distribution Width 13.6 % (11.5-14.5); White Blood Count 5.4 K/mm3 (4.5-10.0)
[2022-01-31] MEDS: SUCRALFATE 1 GM TABLET PO ×2 (05:15→11:21)
[2022-01-31 05:20] LABS: Alanine Aminotransferase 8 U/L (4-35); Albumin Level 3.7 g/dL (3.5-5.1); Alkaline Phosphatase 105 U/L (38-126); Anion Gap 8 mmol/L (8-16); Aspartate Amino Transferase 21 U/L (14-36); Bilirubin,Total 0.5 mg/dL (0.2-1.3); Blood Urea Nitrogen 13 mg/dL (7-17); Calcium 8.8 mg/dL (8.4-10.2); Carbon Dioxide 26 mmol/L (22-30); Chloride 104 mmol/L (98-107); Estimated CRCL calculation 89 ml/min; Estimated Glomerular Filt Rate > 60; Glucose 112 mg/dL (65-110); Magnesium 1.8 mg/dL (1.6-2.3); Potassium 3.8 mmol/L (3.4-5.0); Sodium 138 mmol/L (137-145)
[2022-01-31 06:00] VITALS: BP 147/62; PULSE 73; RESP 16; TEMP 36.4; O2SAT 98
[2022-01-31] MEDS: DOCUSATE SODIUM 100 MG CAPSULE PO (08:08)
[2022-01-31] MEDS: polyethylene glycoL 3350 17 GM POWD.PACK PO (08:08)
[2022-01-31] MEDS: ARTIFICIAL TEARS OPHTH SOLN 15 ML BOTTLE 1 DROP EACH EYE (08:08)
[2022-01-31] MEDS: clonazePAM (*CRX) 0.5 MG TABLET 1 MG PO (08:08)
[2022-01-31] MEDS: MULTIVITAMINS THERAPEUTIC TAB (*BKC) 1 TABLET PO (08:09)
[2022-01-31] MEDS: CHLORHEXIDINE GLUCONATE 0.12% ORAL RINSE 473 ML BTL (*BKC) 15 ML SWISH/SPIT (08:09)
[2022-01-31] MEDS: SERTRALINE HCL 50 MG TABLET 100 MG PO (08:09)
[2022-01-31] MEDS: FLUTICASONE PROPIONATE 0.05% NA SPR 16 GM BTL (*BKC) 1 SPRAY NASAL (08:09)
[2022-01-31] MEDS: FERROUS SULFATE 324 MG TABLET PO (08:09)
[2022-01-31] MEDS: DULoxetine HCL 20 MG CAPSULE.DR 40 MG PO (08:09)
[2022-01-31] MEDS: GABAPENTIN 400 MG CAPSULE PO (08:09)
[2022-01-31] MEDS: ASCORBIC ACID 500 MG TABLET PO (08:09)
[2022-01-31] MEDS: DICLOFENAC SODIUM 1% 100 GM GEL (*BKC) 1 APPLIC TOPICAL (08:10)
[2022-01-31] MEDS: TOLNAFTATE 1% POWDER 45 GM BTL 1 APPLIC TOPICAL (08:10)
[2022-01-31 08:15] VITALS: PULSE 89
--- NOTE | 2022-01-31 10:31 | PM.DS ---
DS: Admitting Diagnosis Discharge Date 01/31/2022 Admitting Diagnosis 1) Acute UTI 2) Constipation 3) Atrial Fibrillation 4) GERD DS: Discharge Diagnosis Discharge Diagnosis (1) Acute UTI: Code(s): N39.0 - Urinary tract infection, site not specified Status: Acute Assessment and Plan: UA was abnormal on presentation with 3+ leuk esterase and >75 WBC Continue IV levofloxacin Urine cultures pending Monitor final culture results and tailor antibiotics accordingly Urine culture grew out E.coli with sensitivity to Bactrim DS. She will be discharged to [facility] today with prescription for Bactrim DS po BID for 7 days. (2) Constipation: Qualifiers: Constipation type: unspecified constipation type Qualified Code(s): K59.00 - Constipation, unspecified Code(s): K59.00 - Constipation, unspecified Status: Resolved Assessment and Plan: CT on presentation showed large volume of stool in distal colon with distention of the rectosigmoid She received soapsuds enema in the ED and subsequently had 3 bowel movements Repeat KUB today shows moderate amount of colonic stool with interval decreased compared to 1 day prior Continue MiraLax b.i.d. and Colace b.i.d. Proceed with Dulcolax suppository today Encourage ambulation and limit narcotics Pt. with 2 BM's overnight. No longer a current problem. (3) GERD (gastroesophageal reflux disease): Code(s): K21.9 - Gastro-esophageal reflux disease without esophagitis Status: Inactive Assessment and Plan: No acute issues Continue sucralfate (4) Hypokalemia: Code(s): E87.6 - Hypokalemia Status: Resolved Assessment and Plan: - 3.8 today. - RESOLVED DS: Summary Hospital Course Reason for hospitalization: Abdominal Pain Hospital Course: This is a 76-year-old female with past medical history significant for spinal stenosis, chronic pain, chronic opiate use, patient is longterm resident, who was brought to the ER for evaluation of having complaints of acute abdominal pain.She is confused and unable to give much history. The pt had a CT exam performed in ER that showed a large stool burden and as such, her Urine showed a positive UTI. Her constipation was able to be resolved with use of cathartics and her Urine grew out E.coli that is sensitive to Augmentin. She has been receiving Levaquin here, but is stable to be discharged back to the longterm on Bactrim DS at this time. No new complaints including CP, Dyspnea, N/V/D, and her constipation has resolved. Her VSS, and her labs are unremarkable today. Status at Discharge Cognitive/behavioral status at discharge: At her baseline. Functional status at discharge: bed bound Overall status at discharge: patient is back to baseline Time Spent with Patient Time attestation: Total time spent providing and/or coordinating discharge services: 40 minutes Time spent: Greater than 30 minutes Exam Const: General: comfortable and no acute distress HENMT: Mouth: Yes moist mucous membranes Eyes: Sclera: sclerae normal Neck: Neck: supple and no JVD Lymphatic: lymphadenopathy not noted Resp: Effort & Inspection: normal respiratory effort Auscultation: clear to auscultation bilaterally Cardio: Rate: regular rate Rhythm: regular rhythm GI: Inspection: non-distended GI Palp: Yes Soft to palpation, No Firmness to palpation present (GI), No Tenderness to palpation present (GI) and No Guarding due to palpation present (GI) Auscultation: normal bowel sounds : External Female Exam: normal external appearance Skin: General skin exam: normal color and no rashes or lesions noted Neuro: General: gait normal Motor exam (neuro): 5/5 motor strength present throughout and Normal motor muscle tone present throughout Sensory Exam: normal sensation Extrem: General: normal to inspection Psych: Appearance: grossly normal Mental Status: mental status grossly abno
== END 2022-01-31 12:53 ==
LOC: ANHED 01-29 00:45 → ANH2MED 01-29 02:27
PROVIDERS: Physician Assistant; Admitting Provider Internal Medicine; Emergency Provider Emergency Medicine; PCP Internal Medicine; Visit Provider Nurse Practitioner Adult Health
DX: N39.0 Urinary tract infection, site not specified (principal); I48.91 Unspecified atrial fibrillation; K59.00 Constipation, unspecified; E87.6 Hypokalemia; K21.9 Gastro-esophageal reflux disease without esophagitis; M48.00 Spinal stenosis, site unspecified; G89.29 Other chronic pain; F32.A Depression, unspecified; F41.9 Anxiety disorder, unspecified; B96.20 Unspecified Escherichia coli [E. coli] as the cause of diseases classified elsewhere; Z79.891 Long term (current) use of opiate analgesic; Z20.822 Contact with and (suspected) exposure to COVID-19
CPT/HCPCS: 36415; 51701; 71045; 74018; 74177; 80048; 80053; 81001; 83690; 83735; 85025; 85027; 85610; 85730; 87077; 87086; 87186; 93005; 96361; 96365; 96366; 96367; 99285; A4248; A9270; C9803; G0378; J0131; J1956; J7040; Q9967; U0003; U0005

== ENCOUNTER 2022-07-19 11:43 | Inpatient (IN) | payer OTHER, SELFPAY ==
[2022-07-19] VITALS (13 sets, daily range): BP systolic 122–151; BP diastolic 69–99; PULSE 90–110; RESP 15–18; TEMP 36.4–37.2; O2SAT 96–100; BMI 21.1
--- NOTE | ~2022-07-19 | XR_ITS ---
XR chest 2V 07/19/2022 12:24 Indication: Right-sided chest pain and shortness of breath Procedure: 2 view chest Comparison: 01/28/2022 Findings: No focal air space disease, pulmonary edema, pleural effusion or suspected pneumothorax. 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 Stable cardiomed iastinal silhouette. There are bilateral degenerative changes of the shoulders. There are surgical ch anges in the epigastric region. Impression: 1: No acute cardiopulmonary disease. Reviewed, dictated and finalized at location A. Impression: 1: No acute cardiopulmonary disease.
--- NOTE | ~2022-07-19 | XR_ITS ---
EXAMINATION: XR ankle RT 2V INDICATION: Right ankle pain and swelling TECHNIQUE: Two views of the right ankle are obtained. COMPARISON: 06/26/2021 FINDINGS: The bones are osteopenic which limits the sensitivity for fracture however none is seen. Th ere is lateral soft tissue swelling of ankle. No fracture is identified. Bone alignment is normal. Po sterior and plantar calcaneal enthesophytes are noted. 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 IMPRESSION: 1. Ankle soft tissue swelling without evidence of acute osseous abnormality, sensitivity limited by o steopenia. Reviewed, dictated and finalized at location A. IMPRESSION: 1. Ankle soft tissue swelling without evidence of acute osseous abnormality, se nsitivity limited by osteopenia.
--- NOTE | ~2022-07-19 | CT_ITS ---
EXAMINATION: CTA chest PE abdomen pel DATE: 07/19/2022 13:12 INDICATION: Chest pain. Shortness of breath. TECHNIQUE: Computed tomography angiography (CTA) of the chest was performed with 100 mL Omnipaque-350 intravenous contrast timed to evaluate the pulmonary arteries. Coronal maximum intensity projection 3D-reconstructions were created by the technologist. Computed tomography (CT) of the abdomen and pelv is was performed with intravenous contrast. Automated exposure control and iterative reconstruction t echnique were employed. The dose-length product was 1312.83 mGy-cm. COMPARISON: CT abdomen and pelvis 01/28/2022 FINDINGS: CTA chest: The lungs demonstrate mild atelectasis. There is chronic marked elevation of right hemidia phragm. No pleural effusion. The heart size is normal. No pericardial effusion. The central pulmonary arteries are enlarged, consistent with pulmonary arterial hypertension. There is no pulmonary embolu s. There are changes of anterior fusion procedure in cervical spine. There is moderate thoracic spond ylosis. CT abdomen and pelvis: There is moderate intrahepatic biliary duct dilatation. The gallbladder is abs ent. The common duct measures 13 mm in diameter. The spleen, pancreas, and adrenal glands are normal. There is cortical thinning of the kidneys. There are cysts in the kidneys measuring up to 3.4 cm on the right. There is gas in the bladder lumen, likely from recent instrumentation. There are surgical changes of the bowel. There are no dilated loops of bowel. There is a small sliding hiatal hernia. Th ere are surgical changes of the stomach. There are no pathologically enlarged lymph nodes. There is n o free intraperitoneal fluid. There are bilateral hip arthroplasties. There is severe lumbar spondylo sis. IMPRESSION: 1. No pulmonary embolus. 2. Intrahepatic and extrahepatic biliary duct dilatation status post cholecystectomy, stable from 12/31. 3. Chronic marked elevation of right hemidiaphragm. Reviewed, dictated and finalized at location A. IMPRESSION: 1. No pulmonary embolus. 2. Intrahepatic and extrahepatic biliary duct dilatation status post cholecyste ctomy, stable from 01/28/2022. 3. Chronic marked elevation of right hemidiaphragm.
--- NOTE | ~2022-07-19 | XR_ITS ---
EXAMINATION: XR barium swallow modified DATE: 07/20/2022 11:49 INDICATION: Dysphagia. TECHNIQUE: The patient was given barium-containing material of multiple consistencies to swallow by t he speech pathologist while I performed fluoroscopy. Fluoroscopy exposure time was 0.7 minutes. The n umber of fluoroscopy images saved to the PACS was 1. Dose-area product was 0.601 Gy-cm^2. FINDINGS: The patient is edentulous. There was reduced pharyngeal squeeze. IMPRESSION: 1. No laryngeal penetration or aspiration. 2. Please refer to the speech therapy report for recommendations. Reviewed, dictated and finalized at location A.
--- NOTE | ~2022-07-19 | US_ITS ---
EXAMINATION:US venous doppler LE BI INDICATION:Leg edema TECHNIQUE: Multiple grayscale, color flow and Doppler images of the right and left lower extremity de ep venous systems were obtained and reviewed. COMPARISON:No prior studies for comparison. FINDINGS: The common femoral, superficial femoral and popliteal veins demonstrate normal respiratory variation, augmentation and compressibility. Color flow is also seen within the posterior tibial, pe roneal, greater saphenous and profunda veins. IMPRESSION: 1: No lower extremity deep venous thrombosis. Reviewed, dictated and finalized at location A.
--- NOTE | 2022-07-19 11:49 | ECG_ITS ---
Measurements Intervals [place] Rate: 93 P: 12 GA: 202 QRS: -37 QRSD: 140 T: 127 QT: 400 QTc: 500 Interpretive Statements SINUS RHYTHM LEFT AXIS DEVIATION BORDERLINE AV CONDUCTION DELAY LEFT BUNDLE BRANCH BLOCK BASELINE ARTIFACT- V1 ABNORMAL ECG NO PREVIOUS ECG AVAILABLE FOR COMPARISON Electronically Signed On 07-19-2022 13:56:52 CDT by Oscar Boland D.O.
[2022-07-19 12:06] LABS: Basophils Percent Auto 0.3 % (0.2-1.2); Eosinophils Absolute Auto 0.1 K/mm3 (0-0.3); Eosinophils Percent Auto 1.3 % (0-4.4); Hematocrit 44.8 % (37.0-47.0); Hemoglobin 14.9 g/dL (12.0-15.0); Immature Granulocyte Absolute 0.02 K/mm3 (0.00-0.031); Immature Granulocyte Percent A 0.2 % (0-0.5); Lymphocytes Absolute Auto 2.85 K/mm3 (0.9-3.2); Lymphocytes Percent Auto 33.1 % (18.3-44.2); Mean Corpuscular HGB Conc 33.3 g/dl (32-36); Mean Corpuscular Hemoglobin 29.9 pg (26-34); Mean Platelet Volume 9.4 fl (7.4-10.4); Monocytes Absolute Auto 0.6 K/mm3 (0.1-0.6); Monocytes Percent Auto 7.4 % (2.6-8.5); Neutrophils Percent Auto 57.7 % (45.5-73.1); Platelet Count Result 259 k/mm3 (150-375); Red Blood Count 4.98 M/mm3 (4.2-5.4); Red Cell Distribution Width 13.3 % (11.5-14.5); White Blood Count 8.6 K/mm3 (4.5-10.0)
[2022-07-19 12:18] LABS: INR 1.2; Prothrombin Time 14.5 Seconds (11.1-14.7)
[2022-07-19 12:19] LABS: Partial Thromboplastin Time 25.7 SECONDS (22.3-36.8)
[2022-07-19 12:20] LABS: Alanine Aminotransferase 15 U/L (6-35); Albumin Level 4.2 g/dL (3.5-5.1); Alkaline Phosphatase 133 U/L (38-126); Anion Gap 13 mmol/L (8-16); Aspartate Amino Transferase 19 U/L (14-36); Bilirubin,Total 0.9 mg/dL (0.2-1.3); Blood Urea Nitrogen 28 mg/dL (7-17); Calcium 9.2 mg/dL (8.4-10.2); Carbon Dioxide 26 mmol/L (22-30); Chloride 95 mmol/L (98-107); Estimated Glomerular Filt Rate > 60; Glucose 159 mg/dL (65-110); Lipase 198 U/L (23-300); Potassium 3.6 mmol/L (3.4-5.0); Sodium 134 mmol/L (137-145)
--- NOTE | 2022-07-19 12:24 | ED.CHESTPAIN ---
HPI - Chest Pain General Chief Complaint: Chest Pain Stated Complaint: CP Time Seen by Provider: 07/19/22 12:00 Source: RN notes reviewed History of Present Illness HPI narrative: Patient presents emergency department for chest pain. Patient states pain is over the right side of the chest and radiates around into the back is described as aching in nature. States nothing makes the pain better or worse. She notes mild associated shortness of breath as well as nausea and vomiting. The patient denies any fevers or chills abdominal pain diarrhea or any other symptom Related Data Home Medications Medication Instructions Recorded Confirmed clonazepam 1 mg tablet mg 07/19/22 07/19/22 gabapentin 400 mg capsule mg 07/19/22 metolazone 2.5 mg tablet mg 07/19/22 omeprazole 20 mg capsule,delayed mg 07/19/22 release potassium chloride 20 mEq meq PO 07/19/22 tablet,extended release(part/cryst) tramadol 50 mg tablet mg 07/19/22 trazodone 50 mg tablet mg 07/19/22 Allergies Allergy/AdvReac Type Severity Reaction Status Date / Time aspirin Allergy Other Verified 07/19/22 11:49 Review of Systems Review of Systems: Gen.: Denies fevers or chills ENT: Denies congestion Respiratory: Reports mild shortness of breath CV: See HPI GI: Denies abdominal pain or diarrhea. Reports nausea and vomiting Musculoskeletal: Denies back pain or muscle pain Neuro: Denies numbness, tingling, weakness or focal weakness Skin: Denies rash Except as documented, all other systems reviewed and negative Exam Narrative: APPEARANCE: No acute distress, nontoxic, resting in bed EYES: EOMI HEENT: Normocephalic, atraumatic, OMM RESPIRATORY: No respiratory distress Clear to auscultation bilaterally with no rhonchi wheezing or rales. CARDIOVASCULAR: Regular rate and rhythm without murmurs rubs or gallops. ABDOMINAL: Soft, nontender, nondistended, no rebound or guarding MUSCULOSKELETAl: Moves all extremities. No clubbing, cyanosis or edema. NEURO: Awake and alert. Following commands, speech normal, no focal deficits SKIN:: Warm, dry. No rashes lesions or abrasions PSYCHIATRIC: Normal affect/mood, Course Course Emergency Course: Discussed Dr. Crain agrees with admission Discussed with JAZ Og[place] for Dr. [place] agrees with consult Discussed with patient and family results of workup and diagnosis. Discussed need for admission. Patient and family understand and agree to current treatment plan Vital Signs Vital signs: Vital Signs Temperature 98.9 F 07/19/22 11:44 Pulse Rate 95 07/19/22 11:44 Respiratory Rate 15 07/19/22 11:44 Blood Pressure 141/74 H 07/19/22 11:44 Pulse Oximetry 99 07/19/22 11:44 Oxygen Delivery Room Air 07/19/22 11:44 Temperature 98.9 F 07/19/22 11:44 Pulse Rate 95 07/19/22 11:44 Respiratory Rate 15 07/19/22 11:44 Blood Pressure 141/74 H 07/19/22 11:44 Pulse Oximetry 99 07/19/22 11:44 Oxygen Delivery Room Air 07/19/22 11:44 MDM - Chest Pain Lab Data Result diagrams: 07/19/22 11:59 07/19/22 12:00 Labs: Lab Results 07/19/22 07/19/22 07/19/22 Range/Units 11:59 12:00 12:00 WBC 8.6 (4.5-10.0) K/mm3 RBC 4.98 (4.2-5.4) M/mm3 Hgb 14.9 (12.0-15.0) g/dL Hct 44.8 (37.0-47.0) % MCV 90.0 (80-100) fl MCH 29.9 (26-34) pg MCHC 33.3 (32-36) g/dl RDW 13.3 (11.5-14.5) % Plt Count 259 (150-375) k/mm3 MPV 9.4 (7.4-10.4) fl Immature Gran % (Auto) 0.2 (0-0.5) % Neut % (Auto) 57.7 (45.5-73.1) % Lymph % (Auto) 33.1 (18.3-44.2) % Ellis % (Auto) 7.4 (2.6-8.5) % Eos % (Auto) 1.3 (0-4.4) % Baso % (Auto) 0.3 (0.2-1.2) % Lymph # (Auto) 2.85 (0.9-3.2) K/mm3 Ellis # (Auto) 0.6 (0.1-0.6) K/mm3 Eos # (Auto) 0.1 (0-0.3) K/mm3 Baso # (Auto) 0.0 (0.0-0.1) K/mm3 Abs Immat Gran (auto) 0.02 (0.00-0.031) K/mm3 Absolute Neuts (auto) 5.0 (1.3-6.7) K/mm3 Absolute Nucle
[2022-07-19 12:31] LABS: Troponin I < 0.012 ng/mL (0.000-0.034)
[2022-07-19 13:52] LABS: SARS-CoV-2 RNA PCR Negative
[2022-07-19 16:01] LABS: Troponin I < 0.012 ng/mL (0.000-0.034)
--- NOTE | 2022-07-19 16:10 | PM.IMHP ---
H&P: HPI History of Present Illness Date/Time: 07/19/22 16:10 Chief Complaint: Chest pain. Narrative: This is a 77-year-old female with arthritis, anxiety, and GERD who presented to the emergency department for evaluation of chest pain. She came in complaining of an aching discomfort in the right side of her chest which radiated into the back associated with mild shortness of breath as well as nausea and vomiting last night. Her troponins have thus far been negative and her EKG showed a left bundle branch block but no other acute findings. It is unclear whether not this is new old. At the time my evaluation she is not having any chest pain in fact a majority of her discomfort is in the epigastric region. She coughs occasionally throughout the interview and she has scattered upper airway rhonchi which improved with cough. It is noted that she is on a mechanical soft diet and she does indicate that sometime she is scared to drink liquids as she is afraid that she is going to choke. Last night she thinks that her nausea and vomiting was due to the fact that she had cheese that she felt was stuck in her esophagus. CT of the abdomen and pelvis done in the emergency department was negative for PE and showed stable and chronic intrahepatic and extrahepatic biliary duct dilatation status post cholecystectomy in December 2021. Review of Systems Review of Systems: Twelve systems were reviewed. No syncope or near syncope. No fever, chills, or sweats. She complains of dysphagia as detailed above. It sounds as though she may be aspirating and that is why she is on a mechanical soft diet. She does not recall any recent episodes of overt aspiration. No sinus congestion or sore throat. She frequently gets heartburn. No hematemesis or melena. Except as documented, all other systems were reviewed and are negative. [facility] Past Medical History Medical History (Updated 07/20/22 @ 01:24 by Nancy Melissa PA-C) Anxiety Arthritis Gastroesophageal reflux disease Surgical History Surgical History (Updated 07/20/22 @ 01:19 by Nancy Melissa PA-C) History of appendectomy History of bilateral hip replacements History of cholecystectomy History of hysterectomy History of repair of right rotator cuff Family History Family History (Updated 07/20/22 @ 01:19 by Nancy Melissa PA-C) Other Diabetes mellitus Hypertension Social History Social History (Updated 07/20/22 @ 01:20 by Nancy Melissa PA-C) Social History: Surrogate medical decision maker: Lesia Escalante, daughter. Code status: Full code. Smoking status: Never smoker Alcohol intake: never Substance use: never Additional living arrangements comments: Resident at [facility]. Spiritual care concerns: No Meds Home Medications and Allergies Home Medications Medication Instructions Recorded Confirmed Type acetaminophen 650 mg tablet 650 mg PO Q8H PRN Mild Pain (Scale 07/19/22 07/19/22 History Score 1-4) aluminum-mag hydroxide-simethicone 30 ml PO DAILY PRN Heartburn 07/19/22 07/19/22 History 200 mg-200 mg-25 mg/5 mL oral susp bisacodyl 10 mg rectal suppository 10 mg RECTAL DAILY PRN Constipation 07/19/22 07/19/22 History (Dulcolax (bisacodyl)) clonazepam 1 mg tablet 1 mg PO Q12H 07/19/22 07/19/22 History diclofenac sodium 1 % topical gel 2 g topical QID PRN Pain 07/19/22 07/19/22 History docusate sodium 100 mg capsule 100 mg PO DAILY 07/19/22 07/19/22 History (Colace) duloxetine 30 mg capsule,delayed 30 mg PO DAILY 07/19/22 07/19/22 History release ferrous sulfate 325 mg (65 mg 325 mg PO BIDAC 07/19/22 07/19/22 History iron) tablet fluticasone propionate 50 1 spray intranasal DAILY 07/19/22 07/19/22 History mcg/actuation nasal spray,suspension gabapentin 400 mg capsule 400 mg PO Q12H 07/19/22 07/19/22 History ibuprofen 200 mg tablet 200 mg PO Q8H PRN Pain 07/19/22 07/19/22 History magnesium hydroxide 400 mg/5 mL 30 ml PO DAILY PRN Con
--- NOTE | 2022-07-19 16:10 | ECG_ITS ---
Measurements Intervals Bee Rate: 90 P: -2 [place]: 208 QRS: -37 QRSD: 138 T: 123 QT: 406 QTc: 499 Interpretive Statements SINUS RHYTHM LEFT AXIS DEVIATION BORDERLINE AV CONDUCTION DELAY LEFT BUNDLE BRANCH BLOCK BASELINE ARTIFACT- I, II, AVR, V2 ABNORMAL ECG COMPARED TO ECG 07/19/2022 11:54:19 NO SIGNIFICANT CHANGES Electronically Signed On 07-19-2022 16:57:56 CDT by Oscar Boland D.O.
--- NOTE | 2022-07-19 16:24 | ADMGEN ---
This patient, Cora Escalante, was admitted to IMU Room 202-01. Patient/family oriented to hospital policies and general routines including ID bracelet, bed and alarms, visiting hours, pain management, procedures, bathroom and other care routines, personal items, smoking policy, room service/diet, and visiting hours. Information on how to activate the Rapid Response Team has been discussed. Patient/Family are encouraged to report perceived risks to care and to ask questions if they do not understand what they are told or what they should do.
[2022-07-19] MEDS: ACETAMINOPHEN 325 MG TABLET 650 MG PO (16:56)
[2022-07-19 19:18] LABS: Hemoglobin A1C 5.2 % (<5.7)
[2022-07-19] MEDS: MELATONIN 5 MG TABLET PO (20:40)
[2022-07-19] MEDS: POTASSIUM CHLORIDE 20 MEQ TABLET.ER BY MOUTH (20:40)
[2022-07-19] MEDS: GABAPENTIN 400 MG CAPSULE PO (20:40)
[2022-07-19] MEDS: clonazePAM (*CRX) 0.5 MG TABLET 1 MG PO (20:40)
[2022-07-19] MEDS: traZODone HCL 50 MG TABLET PO (20:40)
[2022-07-19] MEDS: SUCRALFATE SUSP 100 MG/ML 10 ML UDC 1000 MG PO (20:40)
[2022-07-19] MEDS: metOLazone 2.5 MG TABLET BY MOUTH (20:42)
[2022-07-20] VITALS (17 sets, daily range): BP systolic 99–119; BP diastolic 55–94; PULSE 90–105; RESP 14–20; TEMP 36.4–37.1; O2SAT 97–99
[2022-07-20 04:57] LABS: Basophils Percent Auto 0.3 % (0.2-1.2); Eosinophils Absolute Auto 0.2 K/mm3 (0-0.3); Eosinophils Percent Auto 2.5 % (0-4.4); Hematocrit 42.6 % (37.0-47.0); Hemoglobin 13.9 g/dL (12.0-15.0); Immature Granulocyte Absolute 0.03 K/mm3 (0.00-0.031); Immature Granulocyte Percent A 0.3 % (0-0.5); Lymphocytes Absolute Auto 4.72 K/mm3 (0.9-3.2); Lymphocytes Percent Auto 54.1 % (18.3-44.2); Mean Corpuscular HGB Conc 32.6 g/dl (32-36); Mean Corpuscular Hemoglobin 29.6 pg (26-34); Mean Corpuscular Volume 90.6 fl (80-100); Mean Platelet Volume 9.5 fl (7.4-10.4); Monocytes Absolute Auto 0.8 K/mm3 (0.1-0.6); Monocytes Percent Auto 8.7 % (2.6-8.5); Neutrophils Percent Auto 34.1 % (45.5-73.1); Platelet Count Result 240 k/mm3 (150-375); Red Cell Distribution Width 13.3 % (11.5-14.5); White Blood Count 8.7 K/mm3 (4.5-10.0)
[2022-07-20 05:12] LABS: Alanine Aminotransferase 12 U/L (6-35); Albumin Level 3.8 g/dL (3.5-5.1); Alkaline Phosphatase 115 U/L (38-126); Anion Gap 14 mmol/L (8-16); Aspartate Amino Transferase 17 U/L (14-36); Bilirubin,Total 0.8 mg/dL (0.2-1.3); Blood Urea Nitrogen 34 mg/dL (7-17); Carbon Dioxide 23 mmol/L (22-30); Chloride 95 mmol/L (98-107); Estimated CRCL calculation 45 ml/min; Estimated Glomerular Filt Rate > 60; Glucose 107 mg/dL (65-110); Lipase 230 U/L (23-300); Magnesium 2.2 mg/dL (1.6-2.3); Potassium 3.8 mmol/L (3.4-5.0); Sodium 132 mmol/L (137-145)
[2022-07-20 05:21] LABS: Troponin I < 0.012 ng/mL (0.000-0.034)
[2022-07-20] MEDS: FERROUS SULFATE 324 MG TABLET PO ×2 (05:27→17:31)
[2022-07-20] MEDS: SUCRALFATE SUSP 100 MG/ML 10 ML UDC 1000 MG PO ×3 (05:27→20:38)
[2022-07-20] MEDS: clonazePAM (*CRX) 0.5 MG TABLET 1 MG PO ×2 (09:30→20:38)
[2022-07-20] MEDS: traMADol HCL (*CRX) 50 MG TABLET PO ×2 (09:30→20:39)
[2022-07-20] MEDS: DOCUSATE SODIUM 100 MG CAPSULE PO (09:31)
[2022-07-20] MEDS: ENOXAPARIN 40 MG/0.4 ML SYRINGE SUB-Q (09:31)
[2022-07-20] MEDS: DULoxetine HCL 30 MG CAPSULE.DR PO (09:31)
[2022-07-20] MEDS: MULTIVITAMINS THERAPEUTIC TAB (*BKC) 1 TABLET PO (09:32)
[2022-07-20] MEDS: GABAPENTIN 400 MG CAPSULE PO ×2 (09:32→20:38)
[2022-07-20] MEDS: PANTOPRAZOLE 40 MG TABLET PO (09:32)
[2022-07-20] MEDS: FLUTICASONE PROPIONATE 0.05% NA SPR 16 GM BTL (*BKC) 1 SPRAY NASAL (09:32)
[2022-07-20] MEDS: polyethylene glycoL 3350 17 GM POWD.PACK PO (09:33)
[2022-07-20] MEDS: SERTRALINE HCL 50 MG TABLET 100 MG PO (09:33)
--- NOTE | 2022-07-20 12:05 | PCSTNOTE ---
Modified barium swallow study completed. Other than mild residue with uncontrolled thin liquid bolus, patient's swallowing abilities are WFL. Due to lack of dentition, patient has been receiving mechanical soft diet texture. Recommend Minced and Moist diet (level 5) with thin liquids. Thank you for the referral of this patient.
--- NOTE | 2022-07-20 14:15 | PM.CNCAR ---
Assessment and Plan Assessment and plan (1) Chest pain: Code(s): R07.9 - Chest pain, unspecified Status: Acute (2) Anxiety: Code(s): F41.9 - Anxiety disorder, unspecified Status: Acute (3) Gastroesophageal reflux disease: Code(s): K21.9 - Gastro-esophageal reflux disease without esophagitis Status: Acute (4) Dysphagia: Code(s): R13.10 - Dysphagia, unspecified Status: Acute Plan Atypical chest pain in nature, occurs when trying to swallow food, and patient also has reproducible chest pain upon palpation of her chest. Troponins are negative, and ECG shows LBBB, which is likely chronic as no signs/symptoms consistent with ACS. Chest pain is likely non-cardiac, no indication to pursue stress testing as inpatient. Would check lipid panel for further risk stratification. Given her lower extremity edema that patient reports pain with, would obtain venous Duplex to rule out DVT. History of Present Illness History of Present Illness Consult date/time: 07/20/22 14:15 Requesting physician: Tigre Pearce DO Consult reason: chest pain Reason For Visit: Chest Pain Narrative: Patient is a 77-year-old female with a history of arthritis, anxiety, and GERD who presented for evaluation of chest pain. Patient resides in a halfway. Patient states that about 3 days ago, she would start choking up her food whenever she tried to eat. Would have chest tightness whenever she would start choking. Patient does not walk, therefore, unable to assess exertional symptoms. Patient denies any past cardiac history. No prior history of chest pain. Patient reports that because she does not walk, her legs are chronically swollen and hurt. Patient noted to have an ASA allergy. Troponins negative x 3. ECG showed LBBB, no prior ECG available for comparision. Review of Systems Review of Systems: All systems reviewed & are unremarkable except as noted in HPI and below (HPI) [facility] Past Medical History Medical History Anxiety Arthritis Gastroesophageal reflux disease Surgical History Surgical History History of appendectomy History of bilateral hip replacements History of cholecystectomy History of hysterectomy History of repair of right rotator cuff Family History Family History Other Diabetes mellitus Hypertension Social History Social History Social History: Surrogate medical decision maker: Lesia Escalante, daughter. Code status: Full code. Smoking status: Never smoker Alcohol intake: never Substance use: never Additional living arrangements comments: Resident at [facility]. Spiritual care concerns: No Meds Home Medications and Allergies Home Medications Medication Instructions Recorded Confirmed Type acetaminophen 650 mg tablet 650 mg PO Q8H PRN Mild Pain (Scale 07/19/22 07/19/22 History Score 1-4) aluminum-mag hydroxide-simethicone 30 ml PO DAILY PRN Heartburn 07/19/22 07/19/22 History 200 mg-200 mg-25 mg/5 mL oral susp bisacodyl 10 mg rectal suppository 10 mg RECTAL DAILY PRN Constipation 07/19/22 07/19/22 History (Dulcolax (bisacodyl)) clonazepam 1 mg tablet 1 mg PO Q12H 07/19/22 07/19/22 History diclofenac sodium 1 % topical gel 2 g topical QID PRN Pain 07/19/22 07/19/22 History docusate sodium 100 mg capsule 100 mg PO DAILY 07/19/22 07/19/22 History (Colace) duloxetine 30 mg capsule,delayed 30 mg PO DAILY 07/19/22 07/19/22 History release ferrous sulfate 325 mg (65 mg 325 mg PO BIDAC 07/19/22 07/19/22 History iron) tablet fluticasone propionate 50 1 spray intranasal DAILY 07/19/22 07/19/22 History mcg/actuation nasal spray,suspension gabapentin 400 mg capsule 400 mg PO Q12H 07/19/22 07/19/22 History ibuprofen 200 mg tablet 200 mg PO
--- NOTE | 2022-07-20 18:47 | PM.IMPN ---
Progress Note: A&P Assessment and Plan (1) Chest pain: Code(s): R07.9 - Chest pain, unspecified Status: Acute Assessment and Plan: The patient presented to the emergency department today for evaluation of right-sided chest pain which radiated through to the back, so she was shortness of breath, nausea, and vomiting. She has thus far had 2 negative troponins. EKG shows a left bundle branch block which I presume is old as her history does not suggest an acute coronary syndrome. More over she has tenderness to palpation over the anterior chest and in the epigastric region and it seems less likely that her pain is related to a cardiac etiology. 07/20/2022 interval history: patient presented with complaint of chest pain, patient 3 sets of cardiac enzymes and EKG showed left bundle branch block seen by cardiology suspect most likely chronic as patient does not persistent complaint of chest and the chest pain is reproducible upon palpation most likely patient musculoskeletal pain, and does have lower extremity edema suspicious for DVT venous Dopplers are negative, continue to monitor will have a PT OT evaluate and further recommendation to follow. (2) Dysphagia: Code(s): R13.10 - Dysphagia, unspecified Status: Acute Assessment and Plan: She describes dysphagia with both solids and liquids, more so with liquids and in fact she is afraid to even tried to drink water at times. She will be NPO for now on a modified barium swallow has been ordered for a.m. (3) Gastroesophageal reflux disease: Code(s): K21.9 - Gastro-esophageal reflux disease without esophagitis Status: Acute Assessment and Plan: She reports increasing GERD symptoms recently and d hematemesis and melena. She has apparently been taking ibuprofen at the half-way which will be held. Continue PPI and add Carafate. Consider GI consult. (4) Anxiety: Code(s): F41.9 - Anxiety disorder, unspecified Status: Acute Assessment and Plan: Continue clonazepam. Subjective Date/time seen: 07/20/22 18:47 HPI-Narrative: This is a 77-year-old female with arthritis, anxiety, and GERD who presented to the emergency department for evaluation of chest pain. She came in complaining of an aching discomfort in the right side of her chest which radiated into the back associated with mild shortness of breath as well as nausea and vomiting last night. Her troponins have thus far been negative and her EKG showed a left bundle branch block but no other acute findings. It is unclear whether not this is new old. At the time my evaluation she is not having any chest pain in fact a majority of her discomfort is in the epigastric region. She coughs occasionally throughout the interview and she has scattered upper airway rhonchi which improved with cough. It is noted that she is on a mechanical soft diet and she does indicate that sometime she is scared to drink liquids as she is afraid that she is going to choke. Last night she thinks that her nausea and vomiting was due to the fact that she had cheese that she felt was stuck in her esophagus. CT of the abdomen and pelvis done in the emergency department was negative for PE and showed stable and chronic intrahepatic and extrahepatic biliary duct dilatation status post cholecystectomy in December 2021. 07/20/2022 interval history: patient presented with complaint of chest pain, patient 3 sets of cardiac enzymes and EKG showed left bundle branch block seen by cardiology suspect most likely chronic as patient does not persistent complaint of chest and the chest pain is reproducible upon palpation most likely patient musculoskeletal pain, and does have lower extremity edema suspicious for DVT venous Dopplers are negative, continue to monitor will have a PT OT evaluate and further recommendation to follow. Review of Systems Review of Systems: All systems reviewed & are unremarkable except as
[2022-07-20] MEDS: MELATONIN 5 MG TABLET PO (20:38)
[2022-07-20] MEDS: traZODone HCL 50 MG TABLET PO (20:40)
[2022-07-21] VITALS: PULSE 90
[2022-07-21 04:00] VITALS: BP 122/61; PULSE 83; PULSE 89; RESP 14; TEMP 36.6; O2SAT 92
[2022-07-21] MEDS: FERROUS SULFATE 324 MG TABLET PO ×2 (06:10→16:38)
[2022-07-21] MEDS: SUCRALFATE SUSP 100 MG/ML 10 ML UDC 1000 MG PO ×4 (06:10→20:18)
[2022-07-21] MEDS: clonazePAM (*CRX) 0.5 MG TABLET 1 MG PO ×2 (06:10→18:37)
[2022-07-21 08:00] VITALS: PULSE 80
[2022-07-21 08:09] VITALS: BP 109/60; PULSE 81; RESP 18; TEMP 36; O2SAT 98
[2022-07-21] MEDS: ENOXAPARIN 40 MG/0.4 ML SYRINGE SUB-Q (08:09)
[2022-07-21] MEDS: FLUTICASONE PROPIONATE 0.05% NA SPR 16 GM BTL (*BKC) 1 SPRAY NASAL (08:17)
[2022-07-21] MEDS: GABAPENTIN 400 MG CAPSULE PO ×2 (08:18→20:18)
[2022-07-21] MEDS: SERTRALINE HCL 50 MG TABLET 100 MG PO (08:18)
[2022-07-21] MEDS: PANTOPRAZOLE 40 MG TABLET PO (08:18)
[2022-07-21] MEDS: DULoxetine HCL 30 MG CAPSULE.DR PO (08:19)
[2022-07-21] MEDS: metOLazone 2.5 MG TABLET BY MOUTH (08:20)
[2022-07-21] MEDS: MULTIVITAMINS THERAPEUTIC TAB (*BKC) 1 TABLET PO (08:20)
[2022-07-21] MEDS: POTASSIUM CHLORIDE 20 MEQ TABLET.ER BY MOUTH (08:21)
[2022-07-21] MEDS: traMADol HCL (*CRX) 50 MG TABLET PO ×2 (08:59→17:34)
--- NOTE | 2022-07-21 09:38 | P.DS_ITS ---
DS: Summary Time Spent with Patient Time attestation: Total time spent providing and/or coordinating discharge services: Discharge Plan Discharge Attending physician on discharge: Sade Barron Consulting providers: [place] Discharging Clinician: Sade Barron Anticipated Discharge Date/Time: 07/21/22 09:36 Patient Disposition: Home, Self-Care Activity: as tolerated Diet: heart healthy Patient Instructions: Antibiotic Form, Chest Pain (DC) Stand Alone Forms: General Discharge Information Follow-up/Referrals: Edna,Corin Lee MD [Primary Care Provider] - Discharge Medications: Continued metolazone 2.5 mg tablet See Rx Instructions .ROUTE .COMPLEX Rx Instructions: Pt to take one tablet by mouth every other day trazodone 50 mg tablet 50 mg PO HS gabapentin 400 mg capsule 400 mg PO Q12H clonazepam 1 mg tablet 1 mg PO Q12H tramadol 50 mg tablet 50 mg PO Q6H PRN (Reason: Pain (Scale Score 1-3)) omeprazole 20 mg capsule,delayed release(DR/EC) 20 mg PO DAILY multivitamin Tablet 1 tablet PO DAILY alum-mag hydroxide-simeth 200-200-25 mg/5 mL Suspension 30 ml PO DAILY PRN (Reason: Heartburn) sertraline 100 mg Tablet 100 mg PO DAILY acetaminophen 650 mg Tablet 650 mg PO Q8H PRN (Reason: Mild Pain (Scale Score 1-4)) magnesium hydroxide [Milk of Magnesia] 400 mg/5 mL Suspension 30 ml PO DAILY PRN (Reason: Constipation) Rx Instructions: If no BM in 3 days bisacodyl [Dulcolax (bisacodyl)] 10 mg Suppository 10 mg RECTAL DAILY PRN (Reason: Constipation) Rx Instructions: If no BM after Milk of Magnesia ferrous sulfate 325 mg (65 mg iron) Tablet 325 mg PO BIDAC ibuprofen 200 mg Tablet 200 mg PO Q8H PRN (Reason: Pain) docusate sodium [Colace] 100 mg Capsule 100 mg PO DAILY polyethylene glycol 3350 [Miralax] 17 gram/dose Powder 17 g PO DAILY Rx Instructions: hold for loose stools fluticasone propionate 50 mcg/actuation [place],Suspension 1 spray INTRANASAL DAILY Rx Instructions: administer into each nostril duloxetine 30 mg capsule,delayed release(DR/EC) 30 mg PO DAILY diclofenac sodium 1 % Gel 2 g TOPICAL QID PRN (Reason: Pain) Rx Instructions: apply to affected areas melatonin 5 mg Tablet 5 mg PO HS potassium chloride [K-Tab] 20 mEq Tablet Extended Release See Rx Instructions .ROUTE .COMPLEX Rx Instructions: Pt to take one tablet by mouth every other day Date of admission: 07/19/22 13:33 Primary Care Provider: EdnaCorin Admitting Provider: Negar Crain Attending physician on admission: Negar Crain Condition: Stable
--- NOTE | 2022-07-21 14:24 | PM.IMPN ---
Progress Note: A&P Assessment and Plan (1) Chest pain: Code(s): R07.9 - Chest pain, unspecified Status: Acute Assessment and Plan: The patient presented to the emergency department today for evaluation of right-sided chest pain which radiated through to the back, so she was shortness of breath, nausea, and vomiting. She has thus far had 2 negative troponins. EKG shows a left bundle branch block which I presume is old as her history does not suggest an acute coronary syndrome. More over she has tenderness to palpation over the anterior chest and in the epigastric region and it seems less likely that her pain is related to a cardiac etiology. Chest pain unlikely to be cardiac in nature ? anxiety or MS Pt seen by cardiology already (2) Dysphagia: Code(s): R13.10 - Dysphagia, unspecified Status: Acute Assessment and Plan: She describes dysphagia with both solids and liquids, more so with liquids and in fact she is afraid to even tried to drink water at times. pt can start on clear diet. (3) Gastroesophageal reflux disease: Code(s): K21.9 - Gastro-esophageal reflux disease without esophagitis Status: Acute Assessment and Plan: She reports increasing GERD symptoms recently and d hematemesis and melena. She has apparently been taking ibuprofen at the long term which will be held. Continue PPI and add Carafate. continue to watch (4) Anxiety: Code(s): F41.9 - Anxiety disorder, unspecified Status: Acute Assessment and Plan: Continue clonazepam. Plan PT is very weak benefits from PT/ OT Subjective Date/time seen: 07/21/22 14:24 77-year-old female with arthritis, anxiety, and GERD who presented to the emergency department for evaluation of chest pain. She came in complaining of an aching discomfort in the right side of her chest which radiated into the back associated with mild shortness of breath as well as nausea and vomiting last night.? Pt is still complaining of chest pain mentions that she had all her teeth removed recently but one tooth broke and she has been worried about this broken tooth. Chest pain ? anxiety or muscular related. Review of Systems Review of Systems: Chest pain, tooth pain unable to walk very weak with her legs Objective Data Vital Signs Vital Signs: Vital Signs - 24 hr 07/20/22 16:41 07/20/22 16:00 07/20/22 18:00 Temperature 36.6 C Pulse Rate 104 H 98 99 Respiratory Rate 20 Blood Pressure 99/55 L Pulse Oximetry 98 Oxygen Delivery 07/20/22 20:00 07/20/22 20:00 07/20/22 20:00 Temperature 36.6 C Pulse Rate 103 H 103 H 103 H Respiratory Rate 16 16 Blood Pressure 114/94 H Pulse Oximetry 97 97 Oxygen Delivery Room Air 07/20/22 23:43 07/21/22 00:00 07/21/22 04:00 Temperature 36.5 C Pulse Rate 90 90 83 Respiratory Rate 14 Blood Pressure 116/61 Pulse Oximetry 99 Oxygen Delivery 07/21/22 04:00 07/21/22 08:00 07/21/22 08:09 Temperature 36.6 C 36.0 C L Pulse Rate 89 81 Respiratory Rate 14 18 Blood Pressure 122/61 109/60 Pulse Oximetry 92 98 Oxygen Delivery Room Air 07/21/22 08:00 Temperature Pulse Rate 80 Respiratory Rate Blood Pressure Pulse Oximetry Oxygen Delivery Elderly lady frail One broken tooth in the mouth RRR Chest clear Abdomen soft non tender Legs both weak 2/5 in both legs Intake/Output Intake/Output: Intake & Output 07/18/22 07/19/22 07/20/22 07/21/22 23:59 23:59 23:59 23:59 Intake Total 0 450 240 Output Total 600 300 Balance 0 -150 -60 Meds/Results Medications: Active Medications Generic Name Dose Route Start Last Admin Trade Name Freq PRN Reason Stop Dose Admin Acetaminophen 650 mg 07/19/22 16:10 07/19/22 16:56 Acetaminophen 325 Mg Tablet PO 650 mg Q6H PRN Administration Pain 1-3 Or Fever Al Hydrox/Mg Hydrox/Simethicone 30 ml 07/19/22 18:51 Mag Hydrox/Al
[2022-07-21 16:33] VITALS: BP 101/53; PULSE 94; RESP 18; TEMP 36.3; O2SAT 95
--- NOTE | 2022-07-21 17:17 | PC.NURSE ---
This patient, Cora Escalante, was transferred to [facility] on 07/21/22 at 1715. Personal belongings sent with patient. Report given to KARYN Godoy. Appropriate documentation sent with patient.
--- NOTE | 2022-07-21 17:37 | PC.NURSE ---
This patient, Cora Escalante, was received from [facility]- on 07/21/22 at 1710. Patient/family oriented to unit policies and routines
[2022-07-21] MEDS: traZODone HCL 50 MG TABLET PO (20:18)
[2022-07-21] MEDS: MELATONIN 5 MG TABLET PO (20:18)
[2022-07-21] MEDS: ACETAMINOPHEN 325 MG TABLET 650 MG PO (20:18)
[2022-07-21] MEDS: DICLOFENAC SODIUM 1% 100 GM GEL (*BKC) 1 APPLIC TOPICAL (20:19)
[2022-07-21 22:19] VITALS: BP 104/58; PULSE 93; RESP 16; TEMP 37.2; O2SAT 100
[2022-07-22] MEDS: traMADol HCL (*CRX) 50 MG TABLET PO ×2 (03:55→12:07)
[2022-07-22 05:13] VITALS: BP 108/50; PULSE 76; RESP 16; TEMP 36.6; O2SAT 99
[2022-07-22] MEDS: FERROUS SULFATE 324 MG TABLET PO ×2 (06:08→17:58)
[2022-07-22] MEDS: SUCRALFATE SUSP 100 MG/ML 10 ML UDC 1000 MG PO ×4 (06:08→20:55)
[2022-07-22] MEDS: clonazePAM (*CRX) 0.5 MG TABLET 1 MG PO ×2 (06:08→17:57)
[2022-07-22 07:01] LABS: Anion Gap 10 mmol/L (8-16); Blood Urea Nitrogen 53 mg/dL (7-17); Calcium 8.7 mg/dL (8.4-10.2); Carbon Dioxide 27 mmol/L (22-30); Chloride 96 mmol/L (98-107); Estimated CRCL calculation 28 ml/min; Estimated Glomerular Filt Rate 35; Glucose 109 mg/dL (65-110); Potassium 3.5 mmol/L (3.4-5.0); Sodium 133 mmol/L (137-145)
[2022-07-22 08:00] VITALS: PULSE 76; RESP 16; O2SAT 99
[2022-07-22] MEDS: SERTRALINE HCL 50 MG TABLET 100 MG PO (08:48)
[2022-07-22] MEDS: FLUTICASONE PROPIONATE 0.05% NA SPR 16 GM BTL (*BKC) 1 SPRAY NASAL (08:48)
[2022-07-22] MEDS: polyethylene glycoL 3350 17 GM POWD.PACK PO (08:48)
[2022-07-22] MEDS: DULoxetine HCL 30 MG CAPSULE.DR PO (08:48)
[2022-07-22] MEDS: ENOXAPARIN 40 MG/0.4 ML SYRINGE SUB-Q (08:48)
[2022-07-22] MEDS: PANTOPRAZOLE 40 MG TABLET PO (08:49)
[2022-07-22] MEDS: DOCUSATE SODIUM 100 MG CAPSULE PO (08:49)
[2022-07-22] MEDS: MULTIVITAMINS THERAPEUTIC TAB (*BKC) 1 TABLET PO (08:49)
[2022-07-22] MEDS: GABAPENTIN 400 MG CAPSULE PO ×2 (08:49→20:55)
--- NOTE | 2022-07-22 10:14 | PCOTNOTE ---
Attempted to see pt. for occupational therapy evaluation. Pt. complains of excessive R ankle pain to the touch. Nursing alerted and agreed to follow up with hospitalist regarding potential injury. Will follow for updates.
[2022-07-22] MEDS: ACETAMINOPHEN 325 MG TABLET 650 MG PO (12:07)
[2022-07-22 14:00] VITALS: BP 91/51; PULSE 87; RESP 14; TEMP 36.1; O2SAT 100
--- NOTE | 2022-07-22 14:02 | PM.IMPN ---
Progress Note: A&P Assessment and Plan (1) Chest pain: Code(s): R07.9 - Chest pain, unspecified Status: Acute (2) Dysphagia: Code(s): R13.10 - Dysphagia, unspecified Status: Acute (3) Gastroesophageal reflux disease: Code(s): K21.9 - Gastro-esophageal reflux disease without esophagitis Status: Acute (4) Anxiety: Code(s): F41.9 - Anxiety disorder, unspecified Status: Acute (5) JEVON (acute kidney injury): Code(s): N17.9 - Acute kidney failure, unspecified Status: Acute Plan # atypical chest pain: Reproducible in right anterior chest. Troponins negative. EKG left bundle branch block. Not suggestive of acute coronary syndrome. Cardiology evaluated as well. Most likely musculoskeletal in origin. CTA negative for PE. Chronic intrahepatic and extrahepatic biliary duct dilatation status post cholecystectomy and stable compared to December 2021. # JEVON recently use contrast. The gentle fluids recheck in a.m. # dysphagia which is chronic # GERD on PPI # anxiety disorder on clonazepam # diffuse osteoarthritis # bilateral lower extremity weakness chronic wheelchair-bound # right ankle pain x-ray negative for fracture. Recent injury With wheelchair. Continue PT OT and pain control. # DVT prophylaxis: Lovenox # code status full code Subjective Date/time seen: 07/22/22 14:02 Interval history: 77-year-old female with arthritis, anxiety, and GERD who presented to the emergency department for evaluation of chest pain. She came in complaining of an aching discomfort in the right side of her chest which radiated into the back associated with mild shortness of breath as well as nausea and vomiting last night.? Pt is still complaining of chest pain mentions that she had all her teeth removed recently but one tooth broke and she has been worried about this broken tooth. Chest pain ? anxiety or muscular related. 07/22/2022 complains of right ankle pain. Has been wheelchair bound in the [facility]. Due to back injury in the past. No fever chills. Labs were reviewed. reports wheelchair ran over her ankle a month ago Review of Systems Review of Systems: All systems reviewed & are unremarkable except as noted in HPI and below Exam Narrative: General:??Well-developed female sitting up in bed in no distress.? HEENT:??PERRL, EOMI. Sclera anicteric. Oral mucosa is Try. Edentulous. Neck:??Supple.? No JVD. Respiratory:??Respirations are nonlabored. clear to auscultation bilaterally Cardiovascular:??Regular rate and rhythm with S1-S2. Chest:?She has reproducible tenderness to palpation over the right anterior chest. Gastrointestinal:??Abdomen is soft And nondistended with positive bowel sounds. No guarding or rebound tenderness.? No right upper quadrant tenderness. Skin:??Warm and dry.? No rash or lesions on limited exam. Extremities:??No cyanosis Or clubbing. 1+ lower extremity edema bilaterally. Radial and pedal pulses intact. Neurological:??Alert.? Cranial nerves 2-12 are grossly intact. bilateral lower extremity weakness which is chronic Psychiatric:??Pleasant and cooperative.? Appropriate mood and affect.? Seems somewhat forgetful. Objective Data Vital Signs Vital Signs: Vital Signs - 24 hr 07/21/22 16:33 07/21/22 22:19 07/21/22 20:00 Temperature 97.3 F L 99 F Pulse Rate 94 93 Respiratory Rate 18 16 Blood Pressure 101/53 L 104/58 L Pulse Oximetry 95 100 Oxygen Delivery Room Air 07/22/22 05:13 07/22/22 08:00 Temperature 97.8 F Pulse Rate 76 76 Respiratory Rate 16 16 Blood Pressure 108/50 L Pulse Oximetry 99 99 Oxygen Delivery Room Air Intake/Output Intake/Output: Intake & Output 07/19/22 07/20/22 07/21/22 07/22/22 23:59 23:59 23:59 23:59 Intake Total 0 450 830 290 Output Total 600 300 400 Balance 0 -150 530 -110 Meds/Results Medications: Active Medications Generic Name Dose Route Start Last Admin
[2022-07-22] MEDS: SODIUM CHLORIDE 0.9% IV 1,000 ML 100 ML IV CONT (14:18)
[2022-07-22] MEDS: MELATONIN 5 MG TABLET PO (20:55)
[2022-07-22] MEDS: traZODone HCL 50 MG TABLET PO (20:55)
[2022-07-22 23:54] VITALS: BP 109/60; PULSE 76; RESP 18; TEMP 36.1; O2SAT 99
[2022-07-23] MEDS: SODIUM CHLORIDE 0.9% IV 1,000 ML 100 ML IV CONT (00:32)
[2022-07-23] MEDS: traMADol HCL (*CRX) 50 MG TABLET PO ×2 (00:32→06:08)
[2022-07-23] MEDS: SUCRALFATE SUSP 100 MG/ML 10 ML UDC 1000 MG PO ×2 (06:08→17:06)
[2022-07-23] MEDS: FERROUS SULFATE 324 MG TABLET PO ×2 (06:08→17:06)
[2022-07-23] MEDS: clonazePAM (*CRX) 0.5 MG TABLET 1 MG PO (06:08)
[2022-07-23 07:09] LABS: Basophils Percent Auto 0.8 % (0.2-1.2); Eosinophils Absolute Auto 0.3 K/mm3 (0-0.3); Eosinophils Percent Auto 5.3 % (0-4.4); Hematocrit 40.7 % (37.0-47.0); Hemoglobin 12.5 g/dL (12.0-15.0); Immature Granulocyte Absolute 0.02 K/mm3 (0.00-0.031); Immature Granulocyte Percent A 0.4 % (0-0.5); Lymphocytes Absolute Auto 3.15 K/mm3 (0.9-3.2); Lymphocytes Percent Auto 64.8 % (18.3-44.2); Mean Corpuscular HGB Conc 30.7 g/dl (32-36); Mean Corpuscular Hemoglobin 29.8 pg (26-34); Mean Corpuscular Volume 97.1 fl (80-100); Mean Platelet Volume 9.6 fl (7.4-10.4); Monocytes Absolute Auto 0.5 K/mm3 (0.1-0.6); Monocytes Percent Auto 9.3 % (2.6-8.5); Neutrophils Absolute Auto 0.9 K/mm3 (1.3-6.7); Neutrophils Percent Auto 19.4 % (45.5-73.1); Platelet Count Result 232 k/mm3 (150-375); Red Blood Count 4.19 M/mm3 (4.2-5.4); Red Cell Distribution Width 13.4 % (11.5-14.5); White Blood Count 4.9 K/mm3 (4.5-10.0)
[2022-07-23 07:17] LABS: Alanine Aminotransferase 11 U/L (6-35); Albumin Level 3.3 g/dL (3.5-5.1); Alkaline Phosphatase 102 U/L (38-126); Anion Gap 8 mmol/L (8-16); Aspartate Amino Transferase 14 U/L (14-36); Bilirubin,Total 0.4 mg/dL (0.2-1.3); Blood Urea Nitrogen 46 mg/dL (7-17); Calcium 8.5 mg/dL (8.4-10.2); Carbon Dioxide 24 mmol/L (22-30); Chloride 103 mmol/L (98-107); Estimated CRCL calculation 43 ml/min; Estimated Glomerular Filt Rate 58; Glucose 101 mg/dL (65-110); Potassium 3.4 mmol/L (3.4-5.0); Sodium 135 mmol/L (137-145)
--- NOTE | 2022-07-23 08:23 | PCOTNOTE ---
Pt. physical therapy evaluation, pt. reports being dependent, [facility], and plans to return there after D/C from [place]. Spoke with hospitalist, Alan Esparza, who agreed to cancelation of therapy order for evaluation, as pt. is dependent at baseline. Nurse aware.
[2022-07-23] MEDS: polyethylene glycoL 3350 17 GM POWD.PACK PO (08:53)
[2022-07-23] MEDS: ENOXAPARIN 30 MG/0.3 ML SYRINGE SUB-Q (08:53)
[2022-07-23] MEDS: POTASSIUM CHLORIDE 20 MEQ TABLET.ER BY MOUTH (08:53)
[2022-07-23] MEDS: FLUTICASONE PROPIONATE 0.05% NA SPR 16 GM BTL (*BKC) 1 SPRAY NASAL (08:53)
[2022-07-23] MEDS: MULTIVITAMINS THERAPEUTIC TAB (*BKC) 1 TABLET PO (08:54)
[2022-07-23] MEDS: SERTRALINE HCL 50 MG TABLET 100 MG PO (08:54)
[2022-07-23] MEDS: DULoxetine HCL 30 MG CAPSULE.DR PO (08:54)
[2022-07-23] MEDS: DOCUSATE SODIUM 100 MG CAPSULE PO (08:54)
[2022-07-23] MEDS: PANTOPRAZOLE 40 MG TABLET PO (08:54)
[2022-07-23] MEDS: GABAPENTIN 400 MG CAPSULE PO (08:54)
--- NOTE | 2022-07-23 12:13 | PM.DS ---
DS: Admitting Diagnosis Discharge Date 07/23/2022 Admitting Diagnosis Chest pain DS: Discharge Diagnosis Discharge Diagnosis (1) Chest pain: Code(s): R07.9 - Chest pain, unspecified Status: Acute (2) Dysphagia: Code(s): R13.10 - Dysphagia, unspecified Status: Acute (3) Gastroesophageal reflux disease: Code(s): K21.9 - Gastro-esophageal reflux disease without esophagitis Status: Acute (4) Anxiety: Code(s): F41.9 - Anxiety disorder, unspecified Status: Acute (5) JEVON (acute kidney injury): Code(s): N17.9 - Acute kidney failure, unspecified Status: Acute DS: Summary Hospital Course Hospital Course: # atypical chest pain: Reproducible in right anterior chest. Troponins negative. EKG left bundle branch block. Not suggestive of acute coronary syndrome. Cardiology evaluated as well. Most likely musculoskeletal in origin. CTA negative for PE. Chronic intrahepatic and extrahepatic biliary duct dilatation status post cholecystectomy and stable compared to December 2021. # JEVON recently use contrast. IV fluids started. With resolution of renal failure. Back to normal by the time of discharge # dysphagia which is chronic # GERD on PPI # anxiety disorder on clonazepam # diffuse osteoarthritis # bilateral lower extremity weakness chronic wheelchair-bound # right ankle pain x-ray negative for fracture. Recent injury With wheelchair. Continue PT OT and pain control. # DVT prophylaxis: Lovenox # code status full code Time Spent with Patient Time attestation: Total time spent providing and/or coordinating discharge services: 45 minutes Exam Narrative: General:??Well-developed female sitting up in bed in no distress.? HEENT:??PERRL, EOMI. Sclera anicteric. Oral mucosa is Try. Edentulous. Neck:??Supple.? No JVD. Respiratory:??Respirations are nonlabored. clear to auscultation bilaterally Cardiovascular:??Regular rate and rhythm with S1-S2. Chest:?She has reproducible tenderness to palpation over the right anterior chest. Gastrointestinal:??Abdomen is soft And nondistended with positive bowel sounds. No guarding or rebound tenderness.? No right upper quadrant tenderness. Skin:??Warm and dry.? No rash or lesions on limited exam. Extremities:??No cyanosis Or clubbing. 1+ lower extremity edema bilaterally. Radial and pedal pulses intact. Neurological:??Alert.? Cranial nerves 2-12 are grossly intact. bilateral lower extremity weakness which is chronic Psychiatric:??Pleasant and cooperative.? Appropriate mood and affect.? Seems somewhat forgetful. DS: Data Data Completed and Pending Labs on day of discharge: Labs from last 24 hours 07/23/22 07/23/22 06:49 06:48 WBC 4.9 RBC 4.19 L Hgb 12.5 Hct 40.7 MCV 97.1 D MCH 29.8 MCHC 30.7 L RDW 13.4 Plt Count 232 MPV 9.6 Immature Gran % (Auto) 0.4 Neut % (Auto) 19.4 L Lymph % (Auto) 64.8 H [place] % (Auto) 9.3 H Eos % (Auto) 5.3 H Baso % (Auto) 0.8 Lymph # (Auto) 3.15 [place] # (Auto) 0.5 Eos # (Auto) 0.3 Baso # (Auto) 0.0 Abs Immat Gran (auto) 0.02 Absolute Neuts (auto) 0.9 L Absolute Nucleated RBC 0.0 Nucleated RBC % 0.0 Sodium 135 L Potassium 3.4 Chloride 103 Carbon Dioxide 24 Anion Gap 8 BUN 46 H Creatinine 1.10 H Estim Creat Clear Calc 43 Estimated GFR 58 L Glucose 101 Calcium 8.5 Total Bilirubin 0.4 AST 14 ALT 11 Alkaline Phosphatase 102 Total Protein 7.0 Albumin 3.3 L Imaging Radiologist's impression: ITS Impressions Chest X-Ray 07/19/22 12:27 Impression: 1: No acute cardiopulmonary disease. Chest/Abdomen/Pelvis CTA 07/19/22 13:14 IMPRESSION: 1. No pulmonary embolus. 2. Intrahepatic and extrahepatic biliary duct dilatation status post cholecystectomy, stable from 01/28/2022. 3. Chronic marked elevation of right hemidiaphragm. Modified Barium Swallow 07/20/22 11:56 I
[2022-07-23 12:29] LABS: EDCOVIDSCREEN Negative (Negative)
[2022-07-23 16:00] VITALS: BP 110/54; PULSE 86; RESP 20; TEMP 36.2; O2SAT 100
== END 2022-07-23 19:15 | DRG 313 ==
LOC: ANHED 12:04 → ANHIMU 14:19 → ANH3MEDSUR 07-21 17:11
PROVIDERS: Emergency Medicine; Family Medicine; Physician Assistant; Admitting Provider Student in an Organized Health Care Education/Training Program; Emergency Provider Emergency Medicine; PCP Family Medicine; Visit Provider Internal Medicine
DX: R07.89 Other chest pain (principal); N17.9 Acute kidney failure, unspecified; T50.8X5A Adverse effect of diagnostic agents, initial encounter; I44.7 Left bundle-branch block, unspecified; K21.9 Gastro-esophageal reflux disease without esophagitis; M19.90 Unspecified osteoarthritis, unspecified site; M25.571 Pain in right ankle and joints of right foot; R13.10 Dysphagia, unspecified; F41.9 Anxiety disorder, unspecified; Z20.822 Contact with and (suspected) exposure to COVID-19; Z96.643 Presence of artificial hip joint, bilateral; Z90.49 Acquired absence of other specified parts of digestive tract; Z87.828 Personal history of other (healed) physical injury and trauma; Z99.3 Dependence on wheelchair
CPT/HCPCS: 36415; 71046; 71275; 73600; 74177; 80048; 80053; 83036; 83690; 83735; 84484; 85025; 85610; 85730; 87426; 92611; 93005; 93970; 96372; 97161; 99285; A9270; C9803; G0378; J1650; J7030; Q9967; U0003; U0005

== ENCOUNTER 2022-10-04 15:54 | Inpatient (IN) | payer OTHER, SELFPAY ==
[2022-10-04] VITALS (26 sets, daily range): BP systolic 102–138; BP diastolic 43–73; PULSE 100–108; RESP 12–29; TEMP 36.2–37.4; O2SAT 96–100; BMI 23.1
--- NOTE | ~2022-10-04 | XR_ITS ---
XR chest 1V portable DATE: 10/04/2022 16:54 INDICATION: Transient alteration of awareness TECHNIQUE: Portable semiupright AP view on 10/04/2022 at 1650 hours COMPARISON: 07/19/2022 CT pulmonary scan 07/19/2022 2 view chest FINDINGS: Very prominent elevation the right diaphragm is again noted, unchanged since 07/19/2022. Heart size is likely within normal range. Aortic arch calcification. Mild infiltrate and/or atelectasis is suggested in the lower lung zones. The lungs otherwise appear c lear. No pleural effusion or pulmonary vascular congestion or pneumothorax is noted. Osteopenia. Osteoarthritic change at the glenohumeral joints and bilateral chronic rotator cuff atrop hy. Status post anterior cervical spine surgical fusion. Postoperative change of the left upper quadrant of the abdomen. Approximately 9 mm calcification overlying the right lung base and liver, of uncertain significance, not seen on 07/19/2022 IMPRESSION: Chronic prominent elevation of right diaphragm Mild infiltrate and/or atelectasis is suggested in the lower lung zones Reviewed, dictated and finalized at location B. PRINT DUPLICATOR
--- NOTE | ~2022-10-04 | CT_ITS ---
EXAMINATION: CT brain wo con DATE: 10/04/2022 18:13 INDICATION: altered loc . TECHNIQUE: Computed tomography (CT) of the head was performed without intravenous contrast. The mA wa s adjusted according to patient size. Iterative reconstruction technique was employed. The dose-lengt h product was 605.33 mGy-cm. COMPARISON: 10/17/2021 FINDINGS: No acute intracranial hemorrhage or extra-axial fluid collection. No hydrocephalus, mass, or herniation. No acute ischemic infarct. Unremarkable dural venous sinus attenuation. No acute osseous abnormality. Trace right mastoid fluid, the remaining aerated spaces are clear. Mild atrophy and chronic white matter change. Atherosclerotic intracranial calcification. Bilateral l ens replacements. IMPRESSION: No acute intracranial process. Reviewed, dictated and finalized at location K. DESIGNER
--- NOTE | ~2022-10-04 | US_ITS ---
EXAMINATION: US venous doppler [facility] DATE: 10/05/2022 14:58 INDICATION: Bilateral lower limb swelling TECHNIQUE: Grayscale ultrasound images without and with compression and Doppler ultrasound images of the bilateral lower extremity veins were obtained. COMPARISON: None. FINDINGS: The visualized portions of right common femoral vein, profunda (deep) femoral vein, femoral vein, pop liteal vein, posterior tibial veins, peroneal veins and greater saphenous vein outflow are patent. The visualized portions of left common femoral vein, profunda femoral vein, femoral vein, popliteal v ein, posterior tibial veins, peroneal veins and greater saphenous vein outflow are patent. IMPRESSION: 1. No deep venous thrombosis in either lower limb. Reviewed, dictated and finalized at location A. ERMAKING SUPERVISOR
--- NOTE | 2022-10-04 16:03 | ECG_ITS ---
Measurements Intervals [place] Rate: 106 P: 69 MO: 197 QRS: -44 QRSD: 135 T: 123 QT: 372 QTc: 495 Interpretive Statements SINUS TACHYCARDIA LEFT AXIS DEVIATION [QRS AXIS < -30] LEFT BUNDLE BRANCH BLOCK COMPARED TO ECG 07/19/2022 16:20:55 SINUS TACHYCARDIA NOW PRESENT Electronically Signed On 10-05-2022 15:22:48 SOFTWARE TEST MANAGER by Braeden Isabel M.D.
--- NOTE | 2022-10-04 16:23 | ED.WEAKNESS ---
HPI - Weakness General Chief complaint: Weakness Stated complaint: lethargy Time Seen by Provider: 10/04/22 15:57 History of Present Illness HPI Narrative: Pt presents with altered mental status and generalized weakness per EMS report from [facility] staff. Pt normally responsive today is lethargic and not responding. Pt has stron smell of urine. Pt has no reported cough or fever. Related Data Home Medications Medication Instructions Recorded Confirmed acetaminophen 325 mg capsule 650 mg PO TID PRN Pain 06/26/21 01/29/22 aluminum-mag hydroxide-simethicone 30 ml PO ONCE PRN Dyspepsia 06/26/21 01/29/22 200 mg-200 mg-20 mg/5 mL oral susp ascorbic acid (vitamin C) 250 mg 500 mg PO DAILY 06/26/21 01/29/22 chewable tablet bisacodyl 10 mg rectal suppository 10 mg RECTAL DAILY PRN Constipation 06/26/21 01/29/22 (Dulcolax (bisacodyl)) carboxymethylcellulose sodium 1 drp EACH EYE QID 06/26/21 01/29/22 clonazepam 1 mg tablet 1 mg PO BID 06/26/21 01/29/22 diclofenac sodium 1 % topical gel 2 g topical QID 06/26/21 01/29/22 docusate sodium 100 mg tablet 100 mg PO DAILY 06/26/21 01/29/22 duloxetine 40 mg capsule,delayed 40 mg PO DAILY 06/26/21 01/29/22 release ferrous sulfate 324 mg (65 mg 325 mg PO EVERY OTHER DAY 06/26/21 01/29/22 iron) tablet,delayed release fluticasone propionate 50 1 spray intranasal DAILY 06/26/21 01/29/22 mcg/actuation nasal spray,suspension gabapentin 400 mg capsule 400 mg PO BID 06/26/21 01/29/22 magnesium hydroxide 400 mg/5 mL 30 ml PO DAILY PRN Constipation 06/26/21 01/29/22 oral suspension (Milk of Magnesia) melatonin 5 mg tablet 5 mg PO HS 06/26/21 01/29/22 multivitamin 1 tablet PO DAILY 06/26/21 01/29/22 oxycodone-acetaminophen 5 mg-325 1 tablet PO Q6H 06/26/21 01/29/22 mg tablet (Percocet) polyethylene glycol 3350 17 17 g PO DAILY 06/26/21 01/29/22 gram/dose oral powder (Miralax) sertraline 50 mg tablet 100 mg PO DAILY 06/26/21 01/29/22 sucralfate 1 gram tablet 1 g PO AC 06/26/21 01/29/22 trazodone 50 mg tablet 25 mg PO HS 06/26/21 01/29/22 Antifungal (miconazole) 1 applic topical BID 01/29/22 01/29/22 chlorhexidine gluconate 0.12 % 15 ml QID 01/29/22 01/29/22 mouthwash ibuprofen 200 mg Q6-8H PRN Pain 01/29/22 01/29/22 acetaminophen 650 mg tablet 650 mg PO Q8H PRN Mild Pain (Scale 07/19/22 07/19/22 Score 1-4) aluminum-mag hydroxide-simethicone 30 ml PO DAILY PRN Heartburn 07/19/22 07/19/22 200 mg-200 mg-25 mg/5 mL oral susp bisacodyl 10 mg rectal suppository 10 mg RECTAL DAILY PRN Constipation 07/19/22 07/19/22 (Dulcolax (bisacodyl)) clonazepam 1 mg tablet 1 mg PO Q12H 07/19/22 07/19/22 diclofenac sodium 1 % topical gel 2 g topical QID PRN Pain 07/19/22 07/19/22 docusate sodium 100 mg capsule 100 mg PO DAILY 07/19/22 07/19/22 (Colace) duloxetine 30 mg capsule,delayed 30 mg PO DAILY 07/19/22 07/19/22 release ferrous sulfate 325 mg (65 mg 325 mg PO BIDAC 07/19/22 07/19/22 iron) tablet fluticasone propionate 50 1 spray intranasal DAILY 07/19/22 07/19/22 mcg/actuation nasal spray,suspension gabapentin 400 mg capsule 400 mg PO Q12H 07/19/22 07/19/22 ibuprofen 200 mg tablet 200 mg PO Q8H PRN Pain 07/19/22 07/19/22 magnesium hydroxide 400 mg/5 mL 30 ml PO DAILY PRN Constipation 07/19/22 07/19/22 oral suspension (Milk of Magnesia) melatonin 5 mg tablet 5 mg PO HS 07/19/22 07/19/22 metolazone 2.5 mg tablet See Rx Instructions .Route .COMPLEX 07/19/22 07/19/22 multivitamin 1 tablet PO DAILY 07/19/22 07/19/22 omeprazole 20 mg capsule,delayed 20 mg PO DAILY 07/19/22 07/19/22 release polyethylene glycol 3350 17 17 g PO DAILY 07/19/22 07/19/22 gram/dose oral powder (Miralax) potassium chloride 20 mEq See Rx Instructions .Route .COMPLEX 07/19/22 07/19/22 tablet,extended release (K-Tab) sertraline 100 mg tablet 100 mg PO DAILY 07/19/22 07/19/22 tramadol 50 mg tablet 50 mg PO Q6H PRN Pain (Scale Score 07/19/22 07/19/22 1-3) trazodone 50 mg tablet 50 mg PO HS 07/19/22 07/19/22
[2022-10-04 16:39] LABS: Basophils Absolute Auto 0.1 K/mm3 (0.0-0.1); Basophils Percent Auto 0.6 % (0.2-1.2); Eosinophils Absolute Auto 0.2 K/mm3 (0-0.3); Eosinophils Percent Auto 2.1 % (0-4.4); Hematocrit 43.7 % (37.0-47.0); Hemoglobin 14.2 g/dL (12.0-15.0); Immature Granulocyte Absolute 0.18 K/mm3 (0.00-0.031); Immature Granulocyte Percent A 1.6 % (0-0.5); Lymphocytes Absolute Auto 3.96 K/mm3 (0.9-3.2); Lymphocytes Percent Auto 34.5 % (18.3-44.2); Mean Corpuscular HGB Conc 32.5 g/dl (32-36); Mean Corpuscular Hemoglobin 29.7 pg (26-34); Mean Corpuscular Volume 91.4 fl (80-100); Mean Platelet Volume 9.4 fl (7.4-10.4); Monocytes Absolute Auto 0.7 K/mm3 (0.1-0.6); Monocytes Percent Auto 6.1 % (2.6-8.5); Neutrophils Absolute Auto 6.3 K/mm3 (1.3-6.7); Neutrophils Percent Auto 55.1 % (45.5-73.1); Platelet Count Result 358 k/mm3 (150-375); Red Blood Count 4.78 M/mm3 (4.2-5.4); Red Cell Distribution Width 13.2 % (11.5-14.5); White Blood Count 11.5 K/mm3 (4.5-10.0)
[2022-10-04 16:52] LABS: INR 1.3; Partial Thromboplastin Time 24.7 SECONDS (22.3-36.8); Prothrombin Time 15.2 Seconds (11.1-14.7)
[2022-10-04 16:54] LABS: Alanine Aminotransferase 25 U/L (6-35); Albumin Level 3.8 g/dL (3.5-5.1); Alkaline Phosphatase 158 U/L (38-126); Anion Gap 9 mmol/L (8-16); Aspartate Amino Transferase 37 U/L (14-36); Blood Urea Nitrogen 37 mg/dL (7-17); Calcium 9.4 mg/dL (8.4-10.2); Carbon Dioxide 29 mmol/L (22-30); Chloride 102 mmol/L (98-107); Estimated CRCL calculation 41 ml/min; Estimated Glomerular Filt Rate > 60; Glucose 111 mg/dL (65-110); Sodium 140 mmol/L (137-145)
[2022-10-04 17:02] LABS: Troponin I < 0.012 ng/mL (0.000-0.034)
[2022-10-04 17:13] LABS: CRP 21.8 mg/dL (<1.0)
[2022-10-04 18:01] LABS: Influenza A QL RT-PCR Negative (Negative); Influenza B QL RT-PCR Negative (Negative); SARS-CoV-2 RNA PCR Negative
[2022-10-04 19:07] LABS: Appearance Urine Slightly Cloudy (Clear); Bilirubin Urine 3+ (Negative); Blood Urine 2+ (Negative); Color Urine Yellow (Yellow); Glucose Urine UA Negative (Negative); Ketones Urine Trace mg/dL (Negative); Leukocyte Esterase Ur 2+ LEU/UL (Negative); Nitrate Urine Negative (Negative); Protein Urine 1+ mg/dL (Negative); Specific Grav Ur 1.025 (1.001-1.035)
[2022-10-04 19:16] LABS: Bacteria Urine 4+ /hpf; Mucus Urine Rare /lpf; Squamous Epithelial Cell Urine Few /hpf (Few); WBC Urine >75 /hpf
[2022-10-04 19:27] LABS: Add Urine Microscopic? YES
--- NOTE | 2022-10-04 19:45 | PM.IMHP ---
H&P: HPI History of Present Illness Date/Time: 10/04/22 19:45 Chief Complaint: Lethargic. Narrative: This is a 77-year-old female with arthritis, anemia, anxiety, and GERD who presented to the emergency department via EMS from a local senior living for evaluation of lethargy. She only moves or opens her eyes with noxious stimuli and falls back asleep quickly thereafter. She answered no questions nor did she follow commands at the time my evaluation. As such all of the following is obtained via a review of her electronic medical records. According to ED documentation, she is typically responsive however today was not interactive. Baseline is not documented however I saw the patient in July 2022 and at that time it was documented that she was alert and talking though she seemed to be a bit forgetful. On arrival to ED she was afebrile with stable blood pressures. SpO2 was reportedly in the 80s on room air on EMS arrival and she is currently on nasal cannula. Labs were significant for a WBC of 11.5, BUN 37, creatinine 1.00, CRP 21.8. UA obtained from a Mello catheter was positive for leukocyte esterase, greater than 75 WBCs, and 4+ bacteria. She was negative for influenza and COVID. Brain CT and chest x-ray did not show any acute findings. She is being admitted in this setting for IV antibiotics for presumed UTI. Review of Systems Review of Systems: Unable to be obtained given current clinical condition as detailed above. [facility] Past Medical History Medical History (Updated 10/04/22 @ 22:54 by Nancy Melissa PA-C) Anxiety Arthritis Depression Gastroesophageal reflux disease UTI due to extended-spectrum beta lactamase (ESBL) producing Escherichia coli (12/2021) Surgical History Surgical History History of appendectomy History of bilateral hip replacements History of cholecystectomy History of hysterectomy History of repair of right rotator cuff Family History Family History Other Diabetes mellitus Hypertension Social History Social History Social History: Surrogate medical decision maker: Lesia Escalante, daughter. Code status: Full code. Smoking status: Never smoker Second hand tobacco smoke exposure: No Alcohol intake: never Substance use: never Substance use type: does not use Additional living arrangements comments: Resident at [place]. Spiritual care concerns: No Meds Home Medications and Allergies Home Medications Medication Instructions Recorded Confirmed Type acetaminophen 325 mg capsule 650 mg PO TID PRN Pain 06/26/21 01/29/22 History aluminum-mag hydroxide-simethicone 30 ml PO ONCE PRN Dyspepsia 06/26/21 01/29/22 History 200 mg-200 mg-20 mg/5 mL oral susp ascorbic acid (vitamin C) 250 mg 500 mg PO DAILY 06/26/21 01/29/22 History chewable tablet bisacodyl 10 mg rectal suppository 10 mg RECTAL DAILY PRN Constipation 06/26/21 01/29/22 History (Dulcolax (bisacodyl)) carboxymethylcellulose sodium 1 drp EACH EYE QID 06/26/21 01/29/22 History clonazepam 1 mg tablet 1 mg PO BID 06/26/21 01/29/22 History diclofenac sodium 1 % topical gel 2 g topical QID 06/26/21 01/29/22 History docusate sodium 100 mg tablet 100 mg PO DAILY 06/26/21 01/29/22 History duloxetine 40 mg capsule,delayed 40 mg PO DAILY 06/26/21 01/29/22 History release ferrous sulfate 324 mg (65 mg 325 mg PO EVERY OTHER DAY 06/26/21 01/29/22 History iron) tablet,delayed release fluticasone propionate 50 1 spray intranasal DAILY 06/26/21 01/29/22 History mcg/actuation nasal spray,suspension gabapentin 400 mg capsule 400 mg PO BID 06/26/21 01/29/22 History magnesium hydroxide 400 mg/5 mL 30 ml PO DAILY PRN Constipation 06/26/21 01/29/22 History oral suspension (Milk of Magnesia) melatonin 5 mg tablet 5 mg PO HS 06/26/21 01/29/22 H
--- NOTE | 2022-10-04 20:12 | PC.NURSE ---
unable to get an IV on this patient. This RN tried x2. Another RN is trying at this time to place an IV in this patient
--- NOTE | 2022-10-04 20:27 | PC.NURSE ---
Patient report unable to be given at this time. ED Charge nurse aware.
--- NOTE | 2022-10-04 23:02 | ADMGEN ---
This patient, Cora Escalante, was admitted to [facility] Surg Room 317-02 at 2043. Patient/family oriented to hospital policies and general routines including ID bracelet, bed and alarms, visiting hours, pain management, procedures, bathroom and other care routines, personal items, smoking policy, room service/diet, and visiting hours. Information on how to activate the Rapid Response Team has been discussed. Patient/Family are encouraged to report perceived risks to care and to ask questions if they do not understand what they are told or what they should do.
[2022-10-05] VITALS (19 sets, daily range): BP systolic 91–126; BP diastolic 52–64; PULSE 92–123; RESP 18–30; TEMP 36.1–37.2; O2SAT 98–100; BMI 23.6
[2022-10-05 00:32] LABS: Procalcitonin 0.1 ng/mL
[2022-10-05 00:34] LABS: D Dimer 1.67 ug/mL (<0.48)
[2022-10-05] MEDS: SODIUM CHLORIDE 0.9% IV 1,000 ML 100 ML IV CONT ×2 (01:03→14:45)
[2022-10-05 01:10] LABS: Alveolar/Arterial O2 Gradient 69.6 mmHg; Base Excess ABG -0.8 mEq/l (+/-2.0); Carboxyhemoglobin 0.4 % THb (0-2.0); Fractional Inspired Oxygen 28 %; HCO3 ABG 26.8 mEq/l (22.0-26.0); Methemoglobin ABG 0.3 %THb (0-1.5); Oxygen Content ABG 18.4 %vol (16.0-22.0); Oxygen Saturation ABG 89.3 % (95.0-100.0); Oxyhemoglobin 90.9 % THb (90.0-100.0); PCO2 ABG 56.7 mmHg (35.0-45.0); PO2 ABG 63.1 mmHg (80.0-100.0); PO2 FiO2 Ratio Arterial Blood 2.25 %; Reduced Hemoglobin 8.4 %THb (0-5.0); Total Hemoglobin 14.4 g/dL (12.0-18.0)
[2022-10-05 01:13] LABS: Device NASAL CANNULA; Liters per Minute 2.5 LPM; Modified Allen's Test Pass; Site Drawn LEFT BRACHIAL
[2022-10-05 01:15] LABS: pH ABG 7.293 (7.350-7.450)
--- NOTE | 2022-10-05 02:36 | PC.NURSE ---
This patient, Cora Escalante, was received from [[phone] ] on 10/05/22 at 0300. Patient/family oriented to unit policies and routines
[2022-10-05 02:40] LABS: Amphetamine Screen Urine Negative (Negative); Barbiturate Screen Urine Negative (Negative); Benzodiazepines Screen Urine Negative (Negative); Cannabinoid Screen Urine Negative (Negative); Cocaine Screen Urine Negative (Negative); Methadone Screen Urine Negative (Negative); Opiate Screen Urine Negative (Negative); Phencyclidine Screen Urine Negative (Negative)
--- NOTE | 2022-10-05 02:44 | PC.NURSE ---
Pt transferred to IMU at 0230 to room 201. Pt was comfortable, continuous Bipap was applied upon arrival to room. NS was still running at 100ml/hr and Azithromycin was finishing dose.
[2022-10-05 05:15] LABS: Alanine Aminotransferase 21 U/L (6-35); Albumin Level 3.8 g/dL (3.5-5.1); Alkaline Phosphatase 152 U/L (38-126); Anion Gap 13 mmol/L (8-16); Aspartate Amino Transferase 19 U/L (14-36); Bilirubin,Total 0.9 mg/dL (0.2-1.3); Blood Urea Nitrogen 42 mg/dL (7-17); Carbon Dioxide 26 mmol/L (22-30); Chloride 102 mmol/L (98-107); Estimated CRCL calculation 34 ml/min; Estimated Glomerular Filt Rate 53; Glucose 147 mg/dL (65-110); Potassium 4.1 mmol/L (3.4-5.0); Sodium 141 mmol/L (137-145)
[2022-10-05 05:29] LABS: Hematocrit 43.4 % (37.0-47.0); Hemoglobin 13.7 g/dL (12.0-15.0); Mean Corpuscular HGB Conc 31.6 g/dl (32-36); Mean Corpuscular Volume 91.8 fl (80-100); Mean Platelet Volume 9.8 fl (7.4-10.4); Platelet Count Result 380 k/mm3 (150-375); Red Blood Count 4.73 M/mm3 (4.2-5.4); Red Cell Distribution Width 13.2 % (11.5-14.5); White Blood Count 15.5 K/mm3 (4.5-10.0)
[2022-10-05 07:24] LABS: Alveolar/Arterial O2 Gradient 105.1 mmHg; Base Excess ABG 2.5 mEq/l (+/-2.0); Carboxyhemoglobin 0.1 % THb (0-2.0); Fractional Inspired Oxygen 40 %; HCO3 ABG 29.7 mEq/l (22.0-26.0); Methemoglobin ABG 0.3 %THb (0-1.5); Oxygen Saturation ABG 97.9 % (95.0-100.0); Oxyhemoglobin 97.4 % THb (90.0-100.0); PCO2 ABG 56.8 mmHg (35.0-45.0); PO2 ABG 114.8 mmHg (80.0-100.0); PO2 FiO2 Ratio Arterial Blood 2.87 %; Reduced Hemoglobin 2.2 %THb (0-5.0); Total Hemoglobin 13.8 g/dL (12.0-18.0); pH ABG 7.336 (7.350-7.450)
[2022-10-05 07:25] LABS: Device NON-INVASIVE VENT; Modified Allen's Test Pass; Non-Invasive Expiratory Pressure 5 CMH2O; Non-Invasive Inspiratory Pressure 14 CMH2O; Non-Invasive Vent Rate 20 /MIN; Site Drawn LEFT RADIAL
--- NOTE | 2022-10-05 17:43 | PM.IMPN ---
Progress Note: A&P Assessment and Plan (1) Encephalopathy: Code(s): G93.40 - Encephalopathy, unspecified Status: Acute Assessment and Plan: HPI-Narrative: This is a 77-year-old female with arthritis, anemia, anxiety, and GERD who presented to the emergency department via EMS from a local retirement for evaluation of lethargy. She only moves or opens her eyes with noxious stimuli and falls back asleep quickly thereafter. She answered no questions nor did she follow commands at the time my evaluation. As such all of the following is obtained via a review of her electronic medical records. According to ED documentation, she is typically responsive however today was not interactive. Baseline is not documented however I saw the patient in July 2022 and at that time it was documented that she was alert and talking though she seemed to be a bit forgetful. On arrival to ED she was afebrile with stable blood pressures. SpO2 was reportedly in the 80s on room air on EMS arrival and she is currently on nasal cannula. Labs were significant for a WBC of 11.5, BUN 37, creatinine 1.00, CRP 21.8. UA obtained from a Mello catheter was positive for leukocyte esterase, greater than 75 WBCs, and 4+ bacteria.? She was negative for influenza and COVID. Brain CT and chest x-ray did not show any acute findings. She is being admitted in this setting for IV antibiotics for presumed UTI. 10/05/2022 interval history: currently patient on BiPAP slightly more awake opens her eyes and nods her head, review patient home medication most likely patient symptoms are stemming from poly pharm as patient is on gabapentin, Benadryl, meclizine, clonazepam, Cymbalta, sertraline, and trazodone, will hold this medication and slowly reintroduce some of the meds, will continue to monitor as patient's symptoms are improving will have a PT OT evaluate the patient. (2) Hypoxia: Code(s): R09.02 - Hypoxemia Status: Acute (3) UTI (urinary tract infection) due to urinary indwelling Mello catheter: Code(s): T83.511A - Infection and inflammatory reaction due to indwelling urethral catheter, initial encounter; N39.0 - Urinary tract infection, site not specified Status: Acute (4) Dehydration: Code(s): E86.0 - Dehydration Status: Acute (5) Gastroesophageal reflux disease: Code(s): K21.9 - Gastro-esophageal reflux disease without esophagitis Status: Acute (6) Depression: Code(s): F32.A - Depression, unspecified Status: Acute (7) Anxiety: Code(s): F41.9 - Anxiety disorder, unspecified Status: Acute Plan The patient presented to the ED for evaluation of lethargy. Presumably secondary to urinary tract infection and/or pneumonia. Brain CT was unremarkable. ABG has been ordered to rule out severe hypercarbia or hypoxia as she was reportedly hypoxic on EMS arrival (80% room air) and is currently requiring oxygen. Chest x-ray shows chronic, prominent elevation of the right diaphragm and there are also mild infiltrates and/or atelectasis in the lower lung zones. As she is not able to provide much in the way of history she has been started on antibiotics for possible developing pneumonia. Pulmonary embolism is a possibility and if her D-dimer returns significantly elevated she will be sent for a chest CTA. She does snore quite heavily when asleep an apnea link has been ordered to rule out the possibility of sleep apnea. Given her history of ESBL E coli UTI she was given a dose of imipenem in the emergency department and we will continue with broad-spectrum antibiotics, pending cultures. She is protecting her airway and intubation is not indicated at this juncture. She is being cautiously hydrated with close monitoring of volume status as she appears dry. Her home medications will be reviewed and resumed as appropriate (benzodiazepines will be placed on hold for now). Subjective Date/time seen: 10/05/22 17:43
[2022-10-06] VITALS (18 sets, daily range): BP systolic 134–153; BP diastolic 53–71; PULSE 80–97; RESP 12–26; TEMP 36.3–37; O2SAT 96–100
[2022-10-06] MEDS: ACETAMINOPHEN 325 MG TABLET 650 MG PO ×2 (04:39→22:06)
[2022-10-06] MEDS: SODIUM CHLORIDE 0.9% IV 1,000 ML 100 ML IV CONT ×2 (06:02→21:35)
[2022-10-06] MEDS: DULoxetine HCL 30 MG CAPSULE.DR PO (09:37)
[2022-10-06] MEDS: MULTIVITAMINS THERAPEUTIC TAB (*BKC) 1 TABLET PO (09:37)
[2022-10-06] MEDS: PANTOPRAZOLE 40 MG TABLET PO (09:37)
[2022-10-06] MEDS: polyethylene glycoL 3350 17 GM POWD.PACK PO (09:38)
[2022-10-06] MEDS: FLUTICASONE PROPIONATE 0.05% NA SPR 16 GM BTL (*BKC) 1 SPRAY NASAL (09:38)
[2022-10-06] MEDS: DOCUSATE SODIUM 100 MG CAPSULE PO (09:38)
--- NOTE | 2022-10-06 16:24 | PM.IMPN ---
Progress Note: A&P Assessment and Plan (1) Encephalopathy: Code(s): G93.40 - Encephalopathy, unspecified Status: Acute Assessment and Plan: HPI-Narrative: This is a 77-year-old female with arthritis, anemia, anxiety, and GERD who presented to the emergency department via EMS from a local [facility]pc for evaluation of lethargy. She only moves or opens her eyes with noxious stimuli and falls back asleep quickly thereafter. She answered no questions nor did she follow commands at the time my evaluation. As such all of the following is obtained via a review of her electronic medical records. According to ED documentation, she is typically responsive however today was not interactive. Baseline is not documented however I saw the patient in July 2022 and at that time it was documented that she was alert and talking though she seemed to be a bit forgetful. On arrival to ED she was afebrile with stable blood pressures. SpO2 was reportedly in the 80s on room air on EMS arrival and she is currently on nasal cannula. Labs were significant for a WBC of 11.5, BUN 37, creatinine 1.00, CRP 21.8. UA obtained from a Mello catheter was positive for leukocyte esterase, greater than 75 WBCs, and 4+ bacteria.? She was negative for influenza and COVID. Brain CT and chest x-ray did not show any acute findings. She is being admitted in this setting for IV antibiotics for presumed UTI. 10/06/2022 interval history: currently patient on BiPAP slightly more awake opens her eyes and nods her head, try to communicate, review patient home medication most likely patient symptoms are stemming from poly pharm as patient is on gabapentin, Benadryl, meclizine, clonazepam, Cymbalta, sertraline, and trazodone, we are holding these medications and slowly reintroduce some of the meds, patient urine culture is growing E coli with ESBL discussed with ID pharmacist recommended to start ertapenem, 1 of the blood culture bottle is growing gram positive cocci in clusters, started the patient vancomycin will follow-up on identification and sensitivity, and further recommendation to follow, will continue to monitor as patient's symptoms are improving will have a PT OT evaluate the patient. (2) Hypoxia: Code(s): R09.02 - Hypoxemia Status: Acute (3) UTI (urinary tract infection) due to urinary indwelling Mello catheter: Code(s): T83.511A - Infection and inflammatory reaction due to indwelling urethral catheter, initial encounter; N39.0 - Urinary tract infection, site not specified Status: Acute (4) Dehydration: Code(s): E86.0 - Dehydration Status: Acute (5) Gastroesophageal reflux disease: Code(s): K21.9 - Gastro-esophageal reflux disease without esophagitis Status: Acute (6) Depression: Code(s): F32.A - Depression, unspecified Status: Acute (7) Anxiety: Code(s): F41.9 - Anxiety disorder, unspecified Status: Acute Plan The patient presented to the ED for evaluation of lethargy. Presumably secondary to urinary tract infection and/or pneumonia. Brain CT was unremarkable. ABG has been ordered to rule out severe hypercarbia or hypoxia as she was reportedly hypoxic on EMS arrival (80% room air) and is currently requiring oxygen. Chest x-ray shows chronic, prominent elevation of the right diaphragm and there are also mild infiltrates and/or atelectasis in the lower lung zones. As she is not able to provide much in the way of history she has been started on antibiotics for possible developing pneumonia. Pulmonary embolism is a possibility and if her D-dimer returns significantly elevated she will be sent for a chest CTA. She does snore quite heavily when asleep an apnea link has been ordered to rule out the possibility of sleep apnea. Given her history of ESBL E coli UTI she was given a dose of imipenem in the emergency department and we will continue with broad-spectrum antibiotics, pending cultures.
[2022-10-06] MEDS: ERTAPENEM 1 GM/NS 50 ML 1 GM/50 ML BAG IVPB (17:10)
[2022-10-06] MEDS: MELATONIN 5 MG TABLET PO (21:50)
[2022-10-07] VITALS (13 sets, daily range): BP systolic 141–161; BP diastolic 63–82; PULSE 67–79; RESP 14–18; TEMP 36.2–36.6; O2SAT 100
[2022-10-07 05:19] LABS: Estimated CRCL calculation 77 ml/min; Estimated Glomerular Filt Rate > 60
[2022-10-07] MEDS: metOLazone 2.5 MG TABLET BY MOUTH (09:05)
[2022-10-07] MEDS: FERROUS SULFATE 324 MG TABLET PO (09:05)
[2022-10-07] MEDS: DULoxetine HCL 30 MG CAPSULE.DR PO (09:05)
[2022-10-07] MEDS: PANTOPRAZOLE 40 MG TABLET PO (09:05)
[2022-10-07] MEDS: DOCUSATE SODIUM 100 MG CAPSULE PO (09:06)
[2022-10-07] MEDS: MULTIVITAMINS THERAPEUTIC TAB (*BKC) 1 TABLET PO (09:06)
[2022-10-07] MEDS: FLUTICASONE PROPIONATE 0.05% NA SPR 16 GM BTL (*BKC) 1 SPRAY NASAL (09:06)
[2022-10-07] MEDS: POTASSIUM CHLORIDE 20 MEQ TABLET.ER BY MOUTH (09:07)
[2022-10-07] MEDS: SODIUM CHLORIDE 0.9% IV 1,000 ML 100 ML IV CONT ×2 (09:29→21:00)
--- NOTE | 2022-10-07 16:47 | PM.IMPN ---
Progress Note: A&P Assessment and Plan (1) Encephalopathy: Code(s): G93.40 - Encephalopathy, unspecified Status: Acute Assessment and Plan: HPI-Narrative: This is a 77-year-old female with arthritis, anemia, anxiety, and GERD who presented to the emergency department via EMS from a local detention for evaluation of lethargy. She only moves or opens her eyes with noxious stimuli and falls back asleep quickly thereafter. She answered no questions nor did she follow commands at the time my evaluation. As such all of the following is obtained via a review of her electronic medical records. According to ED documentation, she is typically responsive however today was not interactive. Baseline is not documented however I saw the patient in July 2022 and at that time it was documented that she was alert and talking though she seemed to be a bit forgetful. On arrival to ED she was afebrile with stable blood pressures. SpO2 was reportedly in the 80s on room air on EMS arrival and she is currently on nasal cannula. Labs were significant for a WBC of 11.5, BUN 37, creatinine 1.00, CRP 21.8. UA obtained from a Mello catheter was positive for leukocyte esterase, greater than 75 WBCs, and 4+ bacteria.? She was negative for influenza and COVID. Brain CT and chest x-ray did not show any acute findings. She is being admitted in this setting for IV antibiotics for presumed UTI. 10/07/2022 interval history: today patient off BiPAP more awake c/o 2 loose BM, review patient home medication most likely patient symptoms are stemming from poly pharm as patient is on gabapentin, Benadryl, meclizine, clonazepam, Cymbalta, sertraline, and trazodone, we are holding these medications and slowly reintroduce some of the meds, now patient is off his medication for few and patient is more awake interactive, patient urine culture is growing E coli with ESBL discussed with ID pharmacist recommended to start ertapenem, 1 of the blood culture bottle is growing gram positive cocci in clusters, identification showed Staph haemolyticus started the patient vancomycin, will discuss with ID pharmacy and further recommendation to follow, will continue to monitor as patient's symptoms are improving will have a PT OT evaluate the patient. (2) Hypoxia: Code(s): R09.02 - Hypoxemia Status: Acute (3) UTI (urinary tract infection) due to urinary indwelling Mello catheter: Code(s): T83.511A - Infection and inflammatory reaction due to indwelling urethral catheter, initial encounter; N39.0 - Urinary tract infection, site not specified Status: Acute (4) Dehydration: Code(s): E86.0 - Dehydration Status: Acute (5) Gastroesophageal reflux disease: Code(s): K21.9 - Gastro-esophageal reflux disease without esophagitis Status: Acute (6) Depression: Code(s): F32.A - Depression, unspecified Status: Acute (7) Anxiety: Code(s): F41.9 - Anxiety disorder, unspecified Status: Acute Plan The patient presented to the ED for evaluation of lethargy. Presumably secondary to urinary tract infection and/or pneumonia. Brain CT was unremarkable. ABG has been ordered to rule out severe hypercarbia or hypoxia as she was reportedly hypoxic on EMS arrival (80% room air) and is currently requiring oxygen. Chest x-ray shows chronic, prominent elevation of the right diaphragm and there are also mild infiltrates and/or atelectasis in the lower lung zones. As she is not able to provide much in the way of history she has been started on antibiotics for possible developing pneumonia. Pulmonary embolism is a possibility and if her D-dimer returns significantly elevated she will be sent for a chest CTA. She does snore quite heavily when asleep an apnea link has been ordered to rule out the possibility of sleep apnea. Given her history of ESBL E coli UTI she was given a dose of imipenem in the emergency department and we will kimani
[2022-10-07] MEDS: ERTAPENEM 1 GM/NS 50 ML 1 GM/50 ML BAG IVPB (17:52)
[2022-10-07] MEDS: AZITHROMYCIN 250 MG TABLET 500 MG PO (21:02)
[2022-10-07] MEDS: MELATONIN 5 MG TABLET PO (21:02)
--- NOTE | 2022-10-08 10:06 | PC.NURSE ---
patient's daughter Lesia here at [id number]. She is unsure of what home they would like to use. I gave her the phone number for the floor and she stated that she will call us soon when she has decided.
--- NOTE | 2022-10-08 10:28 | PC.NURSE ---
family requesting officer home.
[2022-10-08 17:35] LABS: Mycoplasma IgM Antibody Titer 186 U/mL (<770)
[2022-10-09 00:16] LABS: Pneumococcal Antigen Urine Not Detected (Not Detected)
[2022-10-09 04:27] LABS: Legionella pneumophila Ag Ur Not Detected (Not Detected)
--- NOTE | 2022-10-17 15:01 | PM.DDS ---
Discharge Summary Date and Time Date of : 10/08/22 Time of : 05:35 Provider Pronounced By: Dior Wood Probable Cause of Probable Cause of : sudden cardiac Summary Hospital Course: patient off BiPAP more awake c/o 2 loose BM,? review patient home medication most likely patient symptoms are stemming from poly pharm as patient is on gabapentin,? Benadryl,? meclizine, clonazepam,? Cymbalta,? sertraline,? and trazodone, we are holding? these? medications and slowly reintroduce some of the meds,? now patient is off his medication for few and patient is more awake interactive, ? patient urine culture is growing E coli with ESBL discussed with ID pharmacist? recommended to start ertapenem,? 1 of the blood culture bottle is growing? gram positive cocci in clusters,? identification showed Staph haemolyticus? started the patient vancomycin,? will discuss with ID pharmacy? and further recommendation to follow, will continue to monitor as patient's symptoms are improving? will have a PT OT evaluate the patient. 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
== END 2022-10-08 10:30 | disposition expired | DRG 698 ==
LOC: ANHED 18:46 → ANH3MEDSUR 10-05 00:31 → ANHIMU 10-05 06:21 → ANH3MEDSUR 10-11 12:18 → ANHIMU 10-11 12:18
PROVIDERS: Internal Medicine; Physician Assistant; Admitting Provider Internal Medicine; Emergency Provider Emergency Medicine; PCP Family Medicine; Visit Provider Family Medicine
DX: T83.511A Infection and inflammatory reaction due to indwelling urethral catheter, initial encounter (principal); G92.8 Other toxic encephalopathy; J18.9 Pneumonia, unspecified organism; N39.0 Urinary tract infection, site not specified; I46.9 Cardiac arrest, cause unspecified; B96.20 Unspecified Escherichia coli [E. coli] as the cause of diseases classified elsewhere; B95.7 Other staphylococcus as the cause of diseases classified elsewhere; T42.6X5A Adverse effect of other antiepileptic and sedative-hypnotic drugs, initial encounter; T45.0X5A Adverse effect of antiallergic and antiemetic drugs, initial encounter; T42.4X5A Adverse effect of benzodiazepines, initial encounter; D64.9 Anemia, unspecified; E86.0 Dehydration; F32.A Depression, unspecified; F41.9 Anxiety disorder, unspecified; M19.90 Unspecified osteoarthritis, unspecified site; K21.9 Gastro-esophageal reflux disease without esophagitis; R19.7 Diarrhea, unspecified; R09.02 Hypoxemia; Z90.49 Acquired absence of other specified parts of digestive tract; Z90.710 Acquired absence of both cervix and uterus; Z20.822 Contact with and (suspected) exposure to COVID-19; Z79.82 Long term (current) use of aspirin; Z88.0 Allergy status to penicillin; Z96.643 Presence of artificial hip joint, bilateral
CPT/HCPCS: 36415; 36600; 70450; 71045; 80053; 80307; 81001; 82375; 82565; 82805; 83050; 83605; 83735; 84145; 84443; 84484; 85025; 85027; 85380; 85610; 85730; 86140; 86738; 87040; 87077; 87086; 87088; 87147; 87181; 87186; 87449; 87636; 87899; 93005; 93970; 94002; 94003; 99285; A9270; J0456; J0692; J0743; J1335; J3370; J7030